=== PATIENT | male | born 1945 | race Caucasian/White ===

== ENCOUNTER 2022-03-24 12:16 | Inpatient (IN) | payer MEDICARE ==
[~2022-03-24] VITALS: Ht 182.9 cm; Wt 105.1 kg
[2022-03-24] MEDS ORDERED: AMLODIPINE BESYL5 MG PO (12:31)
[2022-03-24] MEDS ORDERED: METO100ER PO (12:31)
[2022-03-24] MEDS ORDERED: ALLO300 PO (12:31)
[2022-03-24 12:42] LABS: BASOPHILS ABSOLUTE AUTO 0.03 K/mm3 (0.00-0.23); BASOPHILS PERCENT AUTO 0 % (0-2); EOSINOPHILS ABSOLUTE AUTO 0.24 K/mm3 (0.00-0.68); EOSINOPHILS PERCENT AUTO 3 % (0-6); Hematocrit 34.9 % (37.0-53.0); Hemoglobin 12.4 g/dL (13.5-17.5); IMMATURE GRAN ABSOLUTE AUTO 0.04 K/mm3 (0.00-0.10); IMMATURE GRAN PERCENT AUTO 1 % (0-1); LYMPHOCYTES PERCENT AUTO 23 % (21-46); MONOCYTES ABSOLUTE AUTO 0.66 K/mm3 (0.16-1.47); MONOCYTES PERCENT AUTO 10 % (4-13); Mean Corpuscular HGB Conc 35.5 g/dL (31.5-36.5); Mean Corpuscular Volume 102 fL (80-100); Mean Platelet Volume 8.9 fL (9.1-12.4); NEUTROPHILS ABSOLUTE AUTO 4.41 K/mm3 (1.96-9.15); NEUTROPHILS PERCENT AUTO 63 % (41-73); NRBC ABSOLUTE 0.04 K/mm3 (0.00-0.02); NRBC Auto 0.6 /100 WBC (0.0-0.2); Platelet Count 168 K/mm3 (150-400); RDW Coefficient Variation 13.8 % (11.7-14.2); RDW Standard Deviation 50.9 fL (35.1-46.3); Red Blood Cell Count 3.44 M/mm3 (4.30-5.90); White Blood Cell Count 6.98 K/mm3 (4.00-11.30)
[2022-03-24 12:57] LABS: Albumin, Blood 3.3 g/dL (3.4-5.0); Albumin/Globulin Ratio 0.8 (0.8-1.8); Bilirubin, Total 0.5 mg/dL (0.1-1.0); Bun/Creatinine Ratio 20.2 (12.0-20.0); Calcium, Blood 8.3 mg/dL (8.5-10.1); Creatinine, Blood 1.14 mg/dL (0.60-1.20); Potassium, Blood 4.5 mmol/L (3.5-5.5); Total Protein, Blood 7.3 g/dL (6.4-8.2)
--- NOTE | 2022-03-24 18:38 | NUR ---
SHIFT SUMMARY/ADMIT PATIENT ADMITTED AT 1715. PATIENT SETTLED INTO ROOM. PATIENT ORIENTED TO CALL LIGHT AND TV CONTROL. ADMISSION COMPLETE. PATIENT UNDRESSED AND PLACED IN HOSPITAL GOWN. NS STARTED. PATIENT LEFT KNEE IS RED, SWOLLEN. PATIENT REPORTS 7/10 PAIN, MEDICATED PER EMAR. DR. BENTLEY CONSULTED WITH PATIENT. PLAN FOR POSSIBLE SURGERY TOMORROW. PATIENT IS NPO. PATIENT REPORTS HE SELF CATH AT HOME, DR. BULLOCK NOTIFIED, NEW ORDER FOR TRAMMELL PLACEMENT. PATIENT AGREEABLE. PATIENT IS ON BEDREST. PATIENT IS PLEASANT AND COOPERATIVE WITH CARE.
[2022-03-24 23:49] LABS: Source, Urine Foley catheter
[2022-03-24 23:58] LABS: Bilirubin, Urine Neg (Neg); Blood, Urine 1+ (Neg); Glucose Qualitative, Urine Neg (Neg); Ketones, Urine 1+ (Neg); Leukocyte Esterase, Urine 3+ (Neg); Nitrite, Urine Neg (Neg); Protein, Urine 2+ (Neg); Urobilinogen, Urine 2+ (Normal)
[2022-03-25 00:15] LABS: Amorphous Light (0-Heavy); Appearance, Urine Hazy (Clear); Bacteria Few /hpf; Color, Urine Yellow (P-Yellow); Red Blood Cells, Urine 0-2 /hpf (0-2); Squamous Epithelial Cells Few /hpf (Few); White Blood Cells, Urine 50-100 /hpf (0-5)
[2022-03-25 00:29] LABS: Influenza A, PCR NEGATIVE (NEGATIVE); Influenza B, PCR NEGATIVE (NEGATIVE); Resp Syncytial Virus, PCR NEGATIVE (NEGATIVE); SARS-Cov-2 (COVID-19) PCR, MMC NEGATIVE (NEGATIVE)
--- NOTE | 2022-03-25 05:20 | NUR ---
SHIFT SUMMARY: A&OX4. VERY PLEASANT. CATHETER IN PLACE, PATENT AND DRAINING TO GRAVITY. PAIN WELL MANAGED T/O THE SHIFT. NPO SINCE MIDNIGHT. SURGICAL PREVENTION KIT COMPLETED. PLANS FOR SURGERY. REMAINS ON BEDREST. CALL LIGHT IN REACH AND PT RESTING AT THIS TIME.
[2022-03-25 05:40] LABS: Hematocrit 31.1 % (37.0-53.0); Hemoglobin 10.7 g/dL (13.5-17.5); Mean Corpuscular HGB 35.4 pg (26.0-34.0); Mean Corpuscular HGB Conc 34.4 g/dL (31.5-36.5); Mean Corpuscular Volume 103 fL (80-100); Platelet Count 143 K/mm3 (150-400); RDW Coefficient Variation 13.8 % (11.7-14.2); RDW Standard Deviation 51.9 fL (35.1-46.3); Red Blood Cell Count 3.02 M/mm3 (4.30-5.90); White Blood Cell Count 6.32 K/mm3 (4.00-11.30)
[2022-03-25 06:10] LABS: Bun/Creatinine Ratio 23.1 (12.0-20.0); Calcium, Blood 8.3 mg/dL (8.5-10.1); Creatinine, Blood 1.21 mg/dL (0.60-1.20); Magnesium, Blood 1.6 mg/dL (1.6-2.4); Potassium, Blood 4.3 mmol/L (3.5-5.5)
[2022-03-25 08:35] LABS: CPK Creatine Kinase 137 U/L (39-308)
--- NOTE | 2022-03-25 13:39 | NUR ---
Spiritual Care Nurse Request. Pt. is awake in bed and welcomes my visit. Pt. is unsettled about his discomfort and impending transfer from surgery. Listen empathetically with a calming presence. Pt. declines spiritual care, but welcomed conversation. Facilitated a life story, and unearthed some of causes of his spiritual disappintement. Through theraputic listening rapport is built. Pt. displayed evidence of being encouraged, and verbalized gratitude for the spiritual care visit.
--- NOTE | 2022-03-25 14:10 | NUR ---
TRANSFER SUMMARY PT LEFT WITH TRANSPORT. REPORT CALLED TO ENRIQUE [phone]. CALLED AND SPOKE WITH TOÑO Tobar AND INFORMED HER PT LEFT TO [facility] AND GAVE HER CONTACT TELEPHONE NUMBER TO NURSES' DESK.
--- NOTE | 2022-03-25 14:12 | NUR ---
PT LEFT WITH [facility] TRANSPORT AT 1355. TRANSFER PACKET SENT WITH AMBULANCE CREW. SIGNATURE PAGE OBTAINED. PRIMARY RN, VIMAL HANSEN NOTIFIED.
== END 2022-03-25 14:01 | disposition short-term general hospital (02) | DRG 563 ==
LOC: ER 12:16 → ERHOLD 14:43 → SURS 14:43
PROVIDERS: Nurse Practitioner Acute Care; Student in an Organized Health Care Education/Training Program; ADMIT Internal Medicine
DX: S82.042A Displaced comminuted fracture of left patella, initial encounter for closed fracture (principal); S82.192A Other fracture of upper end of left tibia, initial encounter for closed fracture; N17.9 Acute kidney failure, unspecified; Z20.822 Contact with and (suspected) exposure to COVID-19; S82.832A Other fracture of upper and lower end of left fibula, initial encounter for closed fracture; I10 Essential (primary) hypertension; M10.9 Gout, unspecified; E66.01 Morbid (severe) obesity due to excess calories; F10.20 Alcohol dependence, uncomplicated; E86.0 Dehydration; E83.42 Hypomagnesemia; R20.2 Paresthesia of skin; Z87.891 Personal history of nicotine dependence; Z68.30 Body mass index [BMI] 30.0-30.9, adult; Z98.890 Other specified postprocedural states; Z79.899 Other long term (current) drug therapy; W18.39XA Other fall on same level, initial encounter; Y92.009 Unspecified place in unspecified non-institutional (private) residence as the place of occurrence of the external cause
CPT/HCPCS: 0241U; 36415; 73562-LT; 73590; 73706; 80048; 80053; 81001; 82550; 83735; 83880; 84484; 85025; 85027; 87077; 87086; 87147; 87186; 93005; 93010; 96374-59; 99285-25; A9270; J1885; J2270; J3010; J3475; J7030; Q9967

== ENCOUNTER 2022-10-05 14:54 | Inpatient (IN) | payer MEDICARE ==
[~2022-10-05] VITALS: Ht 182.9 cm; Wt 93.2 kg
[~2022-10-05 14:54] MED LIST: ALLO300 PO; AMLODIPINE BESYL5 MG PO; METO100ER PO
[2022-10-05 16:49] LABS: BASOPHILS ABSOLUTE AUTO 0.04 K/mm3 (0.00-0.23); BASOPHILS PERCENT AUTO 0 % (0-2); EOSINOPHILS ABSOLUTE AUTO 0.03 K/mm3 (0.00-0.68); EOSINOPHILS PERCENT AUTO 0 % (0-6); Hematocrit 27.6 % (37.0-53.0); Hemoglobin 9.5 g/dL (13.5-17.5); IMMATURE GRAN ABSOLUTE AUTO 0.11 K/mm3 (0.00-0.10); IMMATURE GRAN PERCENT AUTO 1 % (0-1); LYMPHOCYTES ABSOLUTE AUTO 1.41 K/mm3 (0.84-5.20); LYMPHOCYTES PERCENT AUTO 10 % (21-46); MONOCYTES PERCENT AUTO 4 % (4-13); Mean Corpuscular HGB 32.2 pg (26.0-34.0); Mean Corpuscular HGB Conc 34.4 g/dL (31.5-36.5); Mean Corpuscular Volume 94 fL (80-100); NEUTROPHILS ABSOLUTE AUTO 12.17 K/mm3 (1.96-9.15); NEUTROPHILS PERCENT AUTO 85 % (41-73); Platelet Count 474 K/mm3 (150-400); RDW Coefficient Variation 15.3 % (11.7-14.2); RDW Standard Deviation 51.8 fL (35.1-46.3); Red Blood Cell Count 2.95 M/mm3 (4.30-5.90); White Blood Cell Count 14.36 K/mm3 (4.00-11.30)
[2022-10-05 17:11] LABS: Albumin, Blood 1.9 g/dL (3.4-5.0); Albumin/Globulin Ratio 0.5 (0.8-1.8); Bilirubin, Total 0.3 mg/dL (0.1-1.0); Bun/Creatinine Ratio 21.9 (12.0-20.0); Calcium, Blood 6.2 mg/dL (8.5-10.1); Creatinine, Blood 1.6 mg/dL (0.60-1.20); Globulin, Blood 3.9 g/dL (2.2-4.0); Potassium, Blood 2.9 mmol/L (3.5-5.5); Total Protein, Blood 5.8 g/dL (6.4-8.2)
[2022-10-05 17:36] LABS: Source, Urine Straight Cath
[2022-10-05 17:41] LABS: Appearance, Urine Hazy (Clear); Bilirubin, Urine Neg (Neg); Blood, Urine 1+ (Neg); Color, Urine Yellow (P-Yellow); Glucose Qualitative, Urine Neg (Neg); Ketones, Urine 1+ (Neg); Leukocyte Esterase, Urine 2+ (Neg); Nitrite, Urine Pos (Neg); Protein, Urine 2+ (Neg); Specific Gravity, Urine 1.015 (1.003-1.022); Urobilinogen, Urine NORM (Normal)
[2022-10-05 17:56] LABS: Bacteria Many /hpf; Hyaline Casts 0-2 /lpf (0-2); Red Blood Cells, Urine 0-2 /hpf (0-2); Squamous Epithelial Cells Few /hpf (Few); White Blood Cells, Urine 25-50 /hpf (0-5)
[2022-10-05 21:16] LABS: Magnesium, Blood 0.9 mg/dL (1.6-2.4)
[2022-10-05 23:15] VITALS: BP 84/41
[2022-10-05 23:30] VITALS: BP 72/59
[2022-10-05 23:45] VITALS: BP 80/53
[2022-10-06] VITALS (91 sets, daily range): BP systolic 66–124; BP diastolic 42–109
[2022-10-06 01:51] LABS: Adenovirus F 40/41 Not Detected (NOT DETECT); Astrovirus Not Detected (NOT DETECT); Campylobacter Sp Not Detected (NOT DETECT); Cryptosporidium Not Detected (NOT DETECT); Cyclospora Cayetanensis Not Detected (NOT DETECT); E. Coli O157 Not Detected (NOT DETECT); Entamoeba Histolytica Not Detected (NOT DETECT); Enteroaggregative E. coli-EAEC Not Detected (NOT DETECT); Enteropathogenic E. coli-EPEC Not Detected (NOT DETECT); Enterotoxigenic E. coli-ETEC Not Detected (NOT DETECT); Giardia Lamblia Not Detected (NOT DETECT); Norovirus GI/GII Not Detected (NOT DETECT); Plesiomonas Shigelloides Not Detected (NOT DETECT); Rotavirus A Not Detected (NOT DETECT); Salmonella Sp Not Detected (NOT DETECT); Sapovirus Not Detected (NOT DETECT); Shiga Toxin-prod E. coli-STEC Not Detected (NOT DETECT); Shigella/Enteroin E. coli-EIEC Not Detected (NOT DETECT); Vibrio Cholerae Not Detected (NOT DETECT); Vibrio Sp Not Detected (NOT DETECT); Yersinia Enterocolitica Not Detected (NOT DETECT)
--- NOTE | 2022-10-06 02:22 | NUR ---
ER ADMIT TO ICU 14: ER ADMIT ARRIVED TOT HE UNIT AT 2251; PT BEING ADMITTED WTIH HYPOTENSION AND SBP UPON ARRIVAL ARE SITTING IN THE 80'S. SR ON MONITOR WITH HR IN THE 60-70 AND NO C/O CHEST PAIN AT THIS TIME. PT STATES THAT HE HAS BONE SPURS IN HIS SHOULDERS AND THAT CAUSES HIM SOME UPPER BACK/NECK PAIN. PT ON RA WITH SPO2 96< AND RR 12-14; PT DOES HAVE C/O SOB DURING REPOSITIONING. PT A&O X 4, PLEASANT AND COOPERATIVE WITH CARE. BOWEL SOUNDS PRESENT IN ALL QUADRANTS; PT HAS DIARRHEA THAT HAS BEEN GOING ON FOR THE LAST WEEK. PT INCONTINENT OF BOTH URINE AND STOOL AT BASELINE AND ARRIVES TO THE UNIT IN A DEPENDS FROM HOME. PT CLEANED UP AND PLACED IN NEW DEPENDS. STOOL SAMPLE COLLECTED AND SENT TO LAB. PT HAS TRACE AMOUNTS OF EDEMA IN BLE. PT HAS HAD A METAL SHARMILA PLACED IN L. LEG ABD STATES THAT HE IS UNABLE TO BEAR WEIGHT ON THIS LEG; PT ABLE TO MOVE EXTREMITY WELL WITH NO ASSOCIATED PAIN. PT SUSTAINING SBP LOW 80'S AND STARTED TO DROP TO HIGH 70'S WITH MAP BELOW 65. DR BALL NOTIFIED AND ORDERS RECIEVED FOR LEVOPHED. PROVIDER ON THE WAY TO PLACE CENTRAL LINE. PT TOLERATED PROCEDURE WELL AND BEDSIDE CXR OBTAINED. CURRENTLY LEVO GTT @ 3 MCG AND NS @ 150 MLS/HR. CALL PLACED TO THE PT'S , TOÑO, AND SHE WAS UPDATED ON THE PT'S STATUS AND EVERYTING THAT HAS HAPPENED SINCE ADMISSION. BED LOWERED, CALL LIGHT IN REACH, WILL CONTINUE TO MONITOR.
[2022-10-06 03:39] LABS: BASOPHILS ABSOLUTE AUTO 0.05 K/mm3 (0.00-0.23); BASOPHILS PERCENT AUTO 0 % (0-2); EOSINOPHILS ABSOLUTE AUTO 0.11 K/mm3 (0.00-0.68); EOSINOPHILS PERCENT AUTO 1 % (0-6); Hematocrit 25.5 % (37.0-53.0); Hemoglobin 8.7 g/dL (13.5-17.5); IMMATURE GRAN ABSOLUTE AUTO 0.05 K/mm3 (0.00-0.10); IMMATURE GRAN PERCENT AUTO 0 % (0-1); LYMPHOCYTES ABSOLUTE AUTO 1.83 K/mm3 (0.84-5.20); LYMPHOCYTES PERCENT AUTO 14 % (21-46); MONOCYTES ABSOLUTE AUTO 0.88 K/mm3 (0.16-1.47); MONOCYTES PERCENT AUTO 7 % (4-13); Mean Corpuscular HGB 31.5 pg (26.0-34.0); Mean Corpuscular HGB Conc 34.1 g/dL (31.5-36.5); Mean Corpuscular Volume 92 fL (80-100); Mean Platelet Volume 8.8 fL (9.1-12.4); NEUTROPHILS ABSOLUTE AUTO 10.65 K/mm3 (1.96-9.15); NEUTROPHILS PERCENT AUTO 78 % (41-73); Platelet Count 470 K/mm3 (150-400); RDW Coefficient Variation 14.9 % (11.7-14.2); RDW Standard Deviation 50.1 fL (35.1-46.3); Red Blood Cell Count 2.76 M/mm3 (4.30-5.90); White Blood Cell Count 13.57 K/mm3 (4.00-11.30)
[2022-10-06 04:16] LABS: Magnesium, Blood 1.5 mg/dL (1.6-2.4)
[2022-10-06 04:35] LABS: Albumin, Blood 1.7 g/dL (3.4-5.0); Albumin/Globulin Ratio 0.5 (0.8-1.8); Bilirubin, Total 0.2 mg/dL (0.1-1.0); Bun/Creatinine Ratio 21.9 (12.0-20.0); Calcium, Blood 5.8 mg/dL (8.5-10.1); Creatinine, Blood 1.51 mg/dL (0.60-1.20); Globulin, Blood 3.2 g/dL (2.2-4.0); Potassium, Blood 3.3 mmol/L (3.5-5.5); Total Protein, Blood 4.9 g/dL (6.4-8.2)
--- NOTE | 2022-10-06 07:09 | NUR ---
SHIFT SUMMARY: NO ACUTE CHANGES THROUGHOUT THE NIGHT. PT DID NOT SLEEP WELL TONIGHT. PT STRAIGHT CATH ONCE WITH 375 ML OUT. PT STATES THAT AT HOME HE NORMALLY STRAIGHT CATHS 3-5 TIMES A DAY. PT DEPENDS CHANGED TWICE THIS SHIFT. PT NOW IN CONTACT PRECAUTION FOR C-DIFF. PT REMAINS SR ON MONITOR WITH HR 80'S AND SBP 110-120. LEVO GTT @ 6 MCG. BED LOWERED, CALL LIGHT IN REACH. BEDSIDE REPORT GIVEN TO IAN BUSH.
[2022-10-06 15:20] LABS: Albumin, Blood 1.8 g/dL (3.4-5.0); Anion Gap 6 mmol/L (6-16); Blood Urea Nitrogen 30 mg/dL (8-24); Bun/Creatinine Ratio 19.9 (12.0-20.0); CO2, Blood 17 mmol/L (21-32); Calcium, Blood 7.3 mg/dL (8.5-10.1); Chloride, Blood 116 mmol/L (98-108); Creatinine, Blood 1.51 mg/dL (0.60-1.20); Glomerular Filtration Rate 48 (60-); Glucose, Blood 139 mg/dL (70-99); Magnesium, Blood 1.8 mg/dL (1.6-2.4); Phosphorus, Blood 3.4 mg/dL (2.5-4.9); Potassium, Blood 3.6 mmol/L (3.5-5.5); Sodium, Blood 139 mmol/L (136-145)
--- NOTE | 2022-10-06 19:35 | NUR ---
END OF SHIFT SUMMARY NEURO: A/O X4, PLEASANT. CARDIAC: SR, BP SUPPORTED WITH LEVOPHED, SEE ICU-C FLOWSHEET FOR TITRATIONS. ONE TIME TROPONIN ORDERED DUE TO SEVERE EPIGASTRIC PAIN TO R/O CARDIAC CAUSE. RESP: ROOM AIR, TRANSIENT C/O SHORTNESS OF BREATH, O2 SAT 99% GI: MEDICATED FOR NAUSEA X2 WITH ZOFRAN WITH MINIMAL RELIEF. NO VOMITING. SEVERE EPIGASTRIC PAIN STARTED AT 1800, CONTACTED DR. BISWAS, ORDER RECIEVED FOR GI COCTAIL AND PEPTO BISMOL. PT EXPLAINS PAIN BURNING AND STATES IT IS WORSE WHEN BELCHING. PAIN SUBSIDED APPROX 15 MIN AFTER GI COCTAIL. ONE TIME DOSE OF FENTANYL NOT GIVEN. 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 STATES HE HAS SENSATION ENOUGH TO KNOW WHEN HIS BLADDER IS FULL AND HE WILL REQUEST CATH. STRAIGHT CATH PERFORMED AT 1300, 400 ML OUT CLEAR YELLOW URINE. SKIN: NO CHANGES. ASSISTED WITH WEIGHT SHIFTS EVERY 2 HOURS AND PRN. IV: CENTRAL LINE RIGHT IJ, DRESSING CHANGED, PT TOLERATED WELL. PIV X2, BOTH FLUSH WELL, NOT WITHDRAWING BLOOD. DAUGHTER PATRCIIA LEIGH CALLED FROM [facility] . UPDATED ON CURRENT CONDITION AND POC. DAUGHTER REQUESTS TO BE CALLED WITH ANY CHANGES ANY TIME OF DAY OR NIGHT. PT'S NOT IN TO VISIT TODAY, CARES FOR DEVELOPMENTALLY DELAYED DAUGHTER AT HOME AROUND THE CLOCK. REPORT GIVEN TO ONCOMING RN.
--- NOTE | 2022-10-06 23:30 | NUR ---
ASSUMED CARE AT 1900 PT LAYING IN BED WATCHING TV AT SHIFT CHANGE. HE IS A/O X4 AND FOLLOWING DIRECTIONS; CAN BE VERY LOUD WHEN IN PAIN. PAIN FROM ABD, RIGHT BELOW THE STERNUM; PRN'S GIVEN, FENTANYL HELPED THE MOST. AFEBRILE. SPO2 >98% ON RA. HR 70-80'S; OCCATIONALLY WILL GO INTO [place] BUT DOES NOT STAY THERE VERY LONG. SBP 100'S; MAP 65-75; LEVOPHED TITRTED DOWN TO 2MCG/MIN. PT SELF CATHS AT HOME; STRAIGHT CATH DONE WITH ASSESSMENT; 400ML URINE OUTPUT. LR INFUSING AT 125ML/HR. SEE SHIFT ASSESSMENT FOR FULL ASSESSMENT.
[2022-10-07] VITALS (86 sets, daily range): BP systolic 75–131; BP diastolic 45–91
[2022-10-07 04:59] LABS: BASOPHILS ABSOLUTE AUTO 0.04 K/mm3 (0.00-0.23); BASOPHILS PERCENT AUTO 1 % (0-2); EOSINOPHILS PERCENT AUTO 1 % (0-6); Hematocrit 22.2 % (37.0-53.0); IMMATURE GRAN ABSOLUTE AUTO 0.05 K/mm3 (0.00-0.10); IMMATURE GRAN PERCENT AUTO 1 % (0-1); LYMPHOCYTES ABSOLUTE AUTO 1.47 K/mm3 (0.84-5.20); LYMPHOCYTES PERCENT AUTO 18 % (21-46); MONOCYTES ABSOLUTE AUTO 0.54 K/mm3 (0.16-1.47); MONOCYTES PERCENT AUTO 7 % (4-13); Mean Corpuscular HGB 31.2 pg (26.0-34.0); Mean Corpuscular HGB Conc 33.3 g/dL (31.5-36.5); Mean Corpuscular Volume 94 fL (80-100); Mean Platelet Volume 8.9 fL (9.1-12.4); NEUTROPHILS ABSOLUTE AUTO 6.03 K/mm3 (1.96-9.15); NEUTROPHILS PERCENT AUTO 73 % (41-73); Platelet Count 388 K/mm3 (150-400); RDW Coefficient Variation 15.6 % (11.7-14.2); RDW Standard Deviation 52.4 fL (35.1-46.3); Red Blood Cell Count 2.37 M/mm3 (4.30-5.90); White Blood Cell Count 8.23 K/mm3 (4.00-11.30)
[2022-10-07 05:05] LABS: Hemoglobin 7.2 g/dL (13.5-17.5)
[2022-10-07 05:50] LABS: Albumin, Blood 1.5 g/dL (3.4-5.0); Anion Gap 5 mmol/L (6-16); Blood Urea Nitrogen 24 mg/dL (8-24); Bun/Creatinine Ratio 17.8 (12.0-20.0); CO2, Blood 17 mmol/L (21-32); Calcium, Blood 6.9 mg/dL (8.5-10.1); Chloride, Blood 118 mmol/L (98-108); Creatinine, Blood 1.35 mg/dL (0.60-1.20); Glomerular Filtration Rate 54 (60-); Glucose, Blood 119 mg/dL (70-99); Magnesium, Blood 1.7 mg/dL (1.6-2.4); Phosphorus, Blood 3.5 mg/dL (2.5-4.9); Potassium, Blood 3.3 mmol/L (3.5-5.5); Sodium, Blood 140 mmol/L (136-145)
--- NOTE | 2022-10-07 07:00 | NUR ---
ASSUME CARE: I have assumed care of this patient.
--- NOTE | 2022-10-07 07:05 | NUR ---
END OF SHIFT SUMMARY NO ACUTE EVENTS OVERNIGHT. PT WAS ABLE TO SLEEP AFTER 2200. HE CONT TO BE A/O X4 AND FOLLOWING DIRECTIONS; CIWA 14-15; 1MG ATIVAN GIVEN AND HELPFUL. SPO2 >98% ON RA. AFEBRILE. HR 70-80'S. SBP 90-120; LEVOPHED INFUSING AT 2MCG/MIN. NO BM THIS SHIFT; NAUSEA SUBSIDED AFTER ATIVAN GIVEN. STRAIGHT CATH TWICE; HE TOLERATED WELL. LR INFUSING AT 125ML/HR. REPROT GIVEN TO AM RN.
--- NOTE | 2022-10-07 10:30 | NUR ---
PHONE CALL: With patient's verbal permission, this RN spoke to his daughter, Jossy, and provided update.
--- NOTE | 2022-10-07 16:14 | NUR ---
PROVIDER UPDATE: Hospitalist called and updated on status of BP and levophed. See new orders.
--- NOTE | 2022-10-07 18:21 | NUR ---
SHIFT SUMMARY: Attempted to discontinue norepi today, however BP would slowly trend down over the course of an hour each time norepi was placed on standby. Provider was notified and cortisol testing ordered for the AM. Pt had three medium sized loose/liquid BMs today. He has received two doses of PRN zofran. Pt straight cathed x 2. Minimal appetite due to pain with swallowing caused by prior surgery. Dietitian consult placed. Right IJ still in place for vasopressors.
--- NOTE | 2022-10-07 22:43 | NUR ---
UPDATE NOTIFIED FROM LAB OF A POSITIVE BLOOD CULTURE, GRAM POSITIVE COCCI IN CLUSTERS. CALL MADE TO HOSPITALIST WHO PROVIDED ORDERS FOR VANCO PER PHARMACY CONSULT FOR BACTEREMIA.
--- NOTE | 2022-10-07 23:39 | NUR ---
ASSUMED CARE AT 1900 PT LAYING IN BED WATCHING TV AT SHIFT CHANGE. HE SEEMS TO BE IN BETTER SPIRITS THAN PREVIOUS SHIFT. HE IS A/O X4 AND FOLLOWING DIRECTIONS; WEAKNESS NOTED TO BLE. AFEBRILE. SPO2 >98% ON RA. HR 60'S. SBP 110-115; LEVOPHED INFUSING AT 0.5MCG/MIN. NAUSEA AND ABD PAIN COMES AND GOES; TOLERATING SOME PO INTAKE; GI COCKTAIL GIVEN AND HELPFUL. SINGLE STRAIGHT CATH DONE; 550ML OUTPUT. LR INFUSING AT 125ML/HR. CIWA 7. SEE SHIFT ASSESSMENT FOR FULL ASSESSMENT.
[2022-10-08] VITALS (35 sets, daily range): BP systolic 82–120; BP diastolic 54–91
--- NOTE | 2022-10-08 03:45 | NUR ---
UPDATE CALLED DR BALL REGARDING PT ACID REFLEX; PT STATES THAT HE TAKES LIQUID PEPTO BISMOL AT HOME AND THIS SEEMS TO REALLY HELP. THIS WAS TOLD TO DR BALL WHO THEN PROVIDED ORDERS FOR LIQUID PEPTO BISMOL 15ML PO Q6HR PRN.
--- NOTE | 2022-10-08 06:29 | NUR ---
END OF SHIFT SUMMARY NO ACUTE EVENTS OVER NIGHT; HAS BEEN AWAKE ALL NIGHT. CONT TO BE A/O X4 AND ABLE TO MAKE HIS NEEDS KNOWN; CIWA 6-8. SPO2 >98% ON RA. HR 60'S. SBP 100-120; MAP 65-80; LEVOPHED ON SB SINCE 2329. ONE BM THIS SHIFT; LOOSE AND SOFT BUT NOT PURE LIQUID; ACID REFLEX RESOLVED AFTER PEPTO. STRAIGHT CATH DONE TWICE; 1250 ML OUTPUT. LR INFUSING AT 125ML/HR. WILL GIVE REPORT TO AM RN WHEN AVAILABLE.
--- NOTE | 2022-10-08 07:15 | NUR ---
ASSSUMED CARE OF PT AT 0715 BEDSIDE REPORT RECIEVED FROM ELEAZAR JASSO. PT IS A/O, RESTING COMFORTABLY ON CONTINUOUS CARDIAC MONITORING. CURRENLY ICU STATUS. CENTRAL LINE RIGHT IJ, PLAN TO D/C IF NO LONGER NEEDED. PT HAS BEEN OFF LEVOPHED SINCE LAST SHIFT. O2 SAT > 96% ON ROOM AIR. ASSISTING WITH STRAIGHT CATHS 4-5 TIMES DAILY NEEDED, PT HAS NEUROGENIC BLADDER SINCE SPINAL CORD INJURY 10 YEARS AGO. DAUGHTER ARRIVING TODAY FROM [facility]. HAS NOT BEEN ABLE TO VISIT BUT IS BEING UPDATED VIA PHONE.
[2022-10-08 09:15] LABS: Albumin, Blood 1.5 g/dL (3.4-5.0); Anion Gap 4 mmol/L (6-16); Blood Urea Nitrogen 16 mg/dL (8-24); CO2, Blood 19 mmol/L (21-32); Calcium, Blood 6.7 mg/dL (8.5-10.1); Chloride, Blood 116 mmol/L (98-108); Creatinine, Blood 1.14 mg/dL (0.60-1.20); Glomerular Filtration Rate 67 (60-); Glucose, Blood 89 mg/dL (70-99); Magnesium, Blood 1.3 mg/dL (1.6-2.4); Phosphorus, Blood 2.4 mg/dL (2.5-4.9); Potassium, Blood 3.6 mmol/L (3.5-5.5); Sodium, Blood 139 mmol/L (136-145)
--- NOTE | 2022-10-08 11:30 | NUR ---
DR. BISWAS TO BEDSIDE. SWALLOW EVAL ORDERED DUE TO PT'S C/O PAINFUL SWALLOWING. ELECTROLYTE REPLACEMENT ORDERED DUE TO RESULTS OF AM LABS. STATUS CHANGED TO MEDICAL WITH TELE. V/S STABLE AT THIS TIME. DAUGHTER ARRIVED TO VISIT. UPDATED ON POC AND ALL QUESTIONS ANSWERED. PT PLEASANT AND COOPERATIVE. MEDICATED FOR GI UPSET WITH PEPTO WITH GOOD RELIEF. STRAIGHT CATH COMPLETED WITH 800ML URINE OUTPUT. RN TO CONTINUE TO MONITOR.
--- NOTE | 2022-10-08 19:08 | NUR ---
END OF SHIFT SUMMARY PT REMAINS A/O, DAUGHTER AT BEDSIDE THROUGHOUT SHIFT. SWALLOW EVAL DONE BY SPEECH THERAPY DUE TO PAINFUL SWALLOWING. GI CONSULT RECOMMENDED, OK PER DR. BISWAS. CONSULT PLACED VIA PHONE TO DR. GONZALEZ, HE CONFIRMS HE WILL SEE THE PT SOON HE IS ABLE. ELECTROLYTES REPLACED. IN AND OUT CATH X2 WITH A TOTAL OF 1400ML OUT. SKIN REMAINS INTACT. PT OOB TO CHAIR WITH PT TODAY. TOLERATED WELL. STAYED IN CHAIR FOR 1 HOUR, 1 PERSON ASSIST WITH WALKER BACK TO BED. STATUS CHANGED TO MEDICAL WITH TELE. REPORT GIVEN TO ONCOMING SHIFT.
[2022-10-08 23:52] LABS: Albumin, Blood 1.6 g/dL (3.4-5.0); Anion Gap 6 mmol/L (6-16); Blood Urea Nitrogen 15 mg/dL (8-24); Bun/Creatinine Ratio 14.6 (12.0-20.0); CO2, Blood 21 mmol/L (21-32); Calcium, Blood 6.7 mg/dL (8.5-10.1); Chloride, Blood 113 mmol/L (98-108); Creatinine, Blood 1.03 mg/dL (0.60-1.20); Glomerular Filtration Rate 75 (60-); Glucose, Blood 109 mg/dL (70-99); Potassium, Blood 3.8 mmol/L (3.5-5.5); Sodium, Blood 140 mmol/L (136-145)
[2022-10-09] VITALS (25 sets, daily range): BP systolic 59–140; BP diastolic 42–125
--- NOTE | 2022-10-09 05:44 | NUR ---
SHIFT SUMMARY PATIENT IS ALERT AND ORIENTED X4, SOLOMON AND LOUD. 02 SATS >95% ON RA, DENIES SOB. HR SR WITH PVCs 70s-80s. BP STABLE. DENIES CP/PRESSURE. DR. GONZALEZ IN LAST NIGHT TO TALK WITH PATIENT, PATIENT NPO AT 0700 TODAY FOR PROCEDURE. STRAIGHT CATH DONE TWICE THIS SHIFT, PATIENT ABLE TO STATE WHEN IT IS NEEDED. MEDS CRUSHED IN APPLESAUCE, PATIENT HAS DIFFICULTY SWALLOWING. INDEPENDENT WITH REPOSITIONING. NO BOWEL MOVEMENT THIS SHIFT, ATTENDS IN PLACE. PATIENT HAS CHRONIC PAIN BUT HAS DENIED NEEDS FOR PAIN MEDICATIONS. CALL LIGHT IN REACH.
--- NOTE | 2022-10-09 14:41 | NUR ---
PT BROUGHT FROM FLOOR TO DAY SURGERY FOR PROCEDURE.
--- NOTE | 2022-10-09 14:44 | NUR ---
10/09/22 1444 Barbara Schroeder HISTORY, CHART, MEDICATIONS AND ALLERGIES REVIEWED BEFORE START OF PROCEDURE. PATIENT CONFIRMS NPO STATUS AND AGREES WITH SCHEDULED PROCEDURE. 3-LEAD EKG REVIEWED WITH PHYSICIAN PRIOR TO START OF PROCEDURE. MONITOR INTACT WITH CONTINUOUS PULSE OXIMETRY,CAPNOGRAPHY, 3-LEAD EKG, INTERMITTENT BP. SUPPLEMENTAL O2 TO BE TITRATED THROUGHOUT PROCEDURE TO MAINTAIN O2 SATURATION ABOVE 90%. PATIENT DETERMINED TO BE ASA APPROPRIATE FOR PROPOFOL SEDATION PRIOR TO START OF PROCEDURE BY DR. GONZALEZ.
--- NOTE | 2022-10-09 14:52 | NUR ---
PT HAS 20G IV IN RIGHT HAND THAT FLUSHES WELL AND FLOWS TO GRAVITY.
--- NOTE | 2022-10-09 18:19 | NUR ---
ICU TRANSFER Patient NPO today, EGD planned for today, patient went down for procedure this afternoon. After EGD patient c/o ABD pain & nausea. ABD soft, bowel tones present. PO Zofran given. PO Vancomycin given for cdiff. 1x loose BM noted this shift. Diet resumed after EGD, no difficulty swallowing noted, full liquid diet ordered. Straight cath x1, 500mL UO. Patient c/o difficulty hearing, left ear has dark ear wax. MD ordered debrox ear gtts. Therapy attempted to work with patient today, but patient going to EGD. PT said patient is SBA/pivot, patient reports he cannot walk. Vitals stable. will contine plan of care.
[2022-10-09 23:02] LABS: Vancomycin, Trough 19.5 ug/mL (5.0-10.0)
[2022-10-10 03:12] VITALS: BP 108/67
--- NOTE | 2022-10-10 04:03 | NUR ---
[facility] SUMMARY VSS. ALERT AND ORIENTED X 3-4. HARD OF HEARING, VOICED WAX BUILD UP. EAR DROPS ADMIN AT HS. MED TELE SINUS RHYTHM AT 71. CIWAS LOW:2-3. NEUROGENIC BLADDER - STR8 CATHS, OUTPUT 500ML. PO VANCO ADMIN. REMAINS ON PRECAUTIONS FOR C-DIFF. CALL LIGHT IN REACH. HAS BEEN RESTING QUIETLY WITH OCCASIONAL INTERRUPTIONS. WILL CONTINUE TO MONITOR
[2022-10-10 05:37] LABS: Albumin, Blood 1.5 g/dL (3.4-5.0); Anion Gap 6 mmol/L (6-16); Blood Urea Nitrogen 12 mg/dL (8-24); Bun/Creatinine Ratio 12.3 (12.0-20.0); CO2, Blood 21 mmol/L (21-32); Calcium, Blood 6.8 mg/dL (8.5-10.1); Chloride, Blood 114 mmol/L (98-108); Creatinine, Blood 0.98 mg/dL (0.60-1.20); Glomerular Filtration Rate 80 (60-); Glucose, Blood 105 mg/dL (70-99); Magnesium, Blood 1.6 mg/dL (1.6-2.4); Phosphorus, Blood 2.8 mg/dL (2.5-4.9); Potassium, Blood 3.6 mmol/L (3.5-5.5); Sodium, Blood 141 mmol/L (136-145)
[2022-10-10 07:51] VITALS: BP 107/77
[2022-10-10 14:55] VITALS: BP 107/59
--- NOTE | 2022-10-10 16:58 | NUR ---
SHIFT SUMMARY PT A&OX3 AND COOPERATIVE OF CARE. PT HAS HAD LOW TEMP T/O DAY (DOCUMENTED IN CHART). DR BISWAS NOTIFIED OF LOW TEMP IN MORNING. NO ORDERS GIVEN. NO C/O PAIN. ASSISTED PT WITH STRAIGHT CATHING T/O DAY. PT DID NOT USE CALL LIGHT WHEN BLADDER WAS FEELING FULL EVEN WITH CONTINUED REMINDER TO CALL. DAUGHER AT BEDSIDE IN AM. PT REPORTS INCREASED HEARING IN LEFT EAR. BED IN LOWEST POSITION AND CALL LIGHT IN REACH.
[2022-10-10 20:09] VITALS: BP 115/59
--- NOTE | 2022-10-10 21:02 | NUR ---
TEMP WS 95.3 TEMPORAL, DID NOT REGISTER ORAL. ROOM TEMP INCREASEDTO ALL THE WAY UP. HEATED BLANKET APPLIED. ALERT AND ORIENTED. ASYMPTOMATIC. ROGELIO NURSE NOTIFIED. ABOUT HALF HR LATER, TEMP 95.7 TEMPORAL. WILL CONTINUE TO MONITOR
[2022-10-10 22:21] LABS: Vancomycin, Trough 15.5 ug/mL (5.0-10.0)
[2022-10-11] VITALS (7 sets, daily range): BP systolic 90–110; BP diastolic 50–61
--- NOTE | 2022-10-11 03:47 | NUR ---
CHILD'S NURSE SUMMARY TEMP LOW THIS SHIFT, OTHERWISE VSS. TEMP WAS 95.3 TEMPORAL AT SHIFT COMMENCE. HEATED BLANKET APPLIED AND ROOM TEMP INCREASED. PROCEDURES EFFECTIVE, LATEST TEMP WAS 96.6 F TEMPORAL. ASYMPTOMATIC. IV MEDS AND ANTIBIOTICS INFUSED, ASSISTED WITH STRAIGHT CATH X 1 WITH STERILE TECHNIQUE DONE, CLEAR YELLOW RETURNS. VOICED WAS HAVING SEVERE PAIN OF LEFT LEG EARLIER IN THE SHIFT, MD WAS NOTIFIED OF PAIN AND OF LOW TEMP, PERCOCET PO ORDERED AND GIVEN. MED EFFECTIVE NOTED ABOVE WITH RESTING QUIETLY. ISOLATION PRECAUTIONS MAINTAINED. CALL LIGHT IN REACH. WILL CONTINUE TO MONITOR
[2022-10-11 05:17] LABS: BASOPHILS ABSOLUTE AUTO 0.03 K/mm3 (0.00-0.23); BASOPHILS PERCENT AUTO 1 % (0-2); EOSINOPHILS ABSOLUTE AUTO 0.15 K/mm3 (0.00-0.68); EOSINOPHILS PERCENT AUTO 3 % (0-6); Hematocrit 20.4 % (37.0-53.0); Hemoglobin 6.8 g/dL (13.5-17.5); IMMATURE GRAN ABSOLUTE AUTO 0.02 K/mm3 (0.00-0.10); IMMATURE GRAN PERCENT AUTO 0 % (0-1); LYMPHOCYTES ABSOLUTE AUTO 1.26 K/mm3 (0.84-5.20); LYMPHOCYTES PERCENT AUTO 27 % (21-46); MONOCYTES ABSOLUTE AUTO 0.42 K/mm3 (0.16-1.47); MONOCYTES PERCENT AUTO 9 % (4-13); Mean Corpuscular HGB 31.8 pg (26.0-34.0); Mean Corpuscular HGB Conc 33.3 g/dL (31.5-36.5); Mean Corpuscular Volume 95 fL (80-100); Mean Platelet Volume 9.1 fL (9.1-12.4); NEUTROPHILS ABSOLUTE AUTO 2.74 K/mm3 (1.96-9.15); NEUTROPHILS PERCENT AUTO 59 % (41-73); Platelet Count 297 K/mm3 (150-400); RDW Standard Deviation 55.5 fL (35.1-46.3); Red Blood Cell Count 2.14 M/mm3 (4.30-5.90); White Blood Cell Count 4.62 K/mm3 (4.00-11.30)
[2022-10-11 05:29] LABS: Albumin, Blood 1.5 g/dL (3.4-5.0); Anion Gap 4 mmol/L (6-16); Blood Urea Nitrogen 11 mg/dL (8-24); Bun/Creatinine Ratio 11.9 (12.0-20.0); CO2, Blood 22 mmol/L (21-32); Calcium, Blood 6.7 mg/dL (8.5-10.1); Chloride, Blood 112 mmol/L (98-108); Creatinine, Blood 0.92 mg/dL (0.60-1.20); Glomerular Filtration Rate 86 (60-); Glucose, Blood 107 mg/dL (70-99); Magnesium, Blood 1.4 mg/dL (1.6-2.4); Potassium, Blood 3.7 mmol/L (3.5-5.5); Sodium, Blood 138 mmol/L (136-145)
[2022-10-11 08:41] LABS: Percent Saturation 47.1 % (20.0-50.0)
[2022-10-11] MEDS ORDERED: APHEN325 M1 PO (11:54)
[2022-10-11] MEDS ORDERED: FLUT.05NI (11:56)
[2022-10-11] MEDS ORDERED: FLUDROCORTISON0.1 M1 PO (11:56)
[2022-10-11] MEDS ORDERED: CARB10OTL BOTHEARS (11:56)
[2022-10-11] MEDS ORDERED: MAGNESIUM OXID500 MG PO (11:57)
[2022-10-11] MEDS ORDERED: ONDA4ODT MM (11:57)
[2022-10-11] MEDS ORDERED: VANCOCIN HCL125 MG PO (11:58)
[2022-10-11] MEDS ORDERED: PANT40 PO (11:58)
[2022-10-11] MEDS ORDERED: FOLI1 PO (11:59)
[2022-10-11] MEDS ORDERED: LACT PO (11:59)
[2022-10-11] MEDS ORDERED: B-1100 M1 PO (11:59)
[2022-10-11 12:45] LABS: Influenza A, PCR NEGATIVE (NEGATIVE); Influenza B, PCR NEGATIVE (NEGATIVE); Resp Syncytial Virus, PCR NEGATIVE (NEGATIVE); SARS-Cov-2 (COVID-19) PCR, MMC NEGATIVE (NEGATIVE)
== END 2022-10-11 17:00 | DRG 698 ==
LOC: ER 14:54 → ICUW 21:01 → MEDS 21:01 → ICUW 22:45 → MEDS 10-09 12:50 → ENPENDDIS 10-11 12:04 → MEDS 10-11 17:00
PROVIDERS: Family Medicine; Internal Medicine; Internal Medicine Gastroenterology; Nurse Practitioner Acute Care; Student in an Organized Health Care Education/Training Program; ADMIT Student in an Organized Health Care Education/Training Program
PROC: 3E03329 Introduction of Other Anti-infective into Peripheral Vein, Percutaneous Approach (ICD-10-PCS; 2022-10-05)
PROC: 02HV33Z Insertion of Infusion Device into Superior Vena Cava, Percutaneous Approach (ICD-10-PCS; 2022-10-06)
PROC: 3E033XZ Introduction of Vasopressor into Peripheral Vein, Percutaneous Approach (ICD-10-PCS; 2022-10-06)
PROC: 0DB68ZX Excision of Stomach, Via Natural or Artificial Opening Endoscopic, Diagnostic (ICD-10-PCS; 2022-10-09)
PROC: 0D748ZZ Dilation of Esophagogastric Junction, Via Natural or Artificial Opening Endoscopic (ICD-10-PCS; principal; 2022-10-09 12:00)
PROC: 0D738ZZ Dilation of Lower Esophagus, Via Natural or Artificial Opening Endoscopic (ICD-10-PCS; 2022-10-09 12:00)
PROC: 0DB48ZX Excision of Esophagogastric Junction, Via Natural or Artificial Opening Endoscopic, Diagnostic (ICD-10-PCS; 2022-10-09 12:00)
PROC: 30233N1 Transfusion of Nonautologous Red Blood Cells into Peripheral Vein, Percutaneous Approach (ICD-10-PCS; 2022-10-11)
DX: T83.518A Infection and inflammatory reaction due to other urinary catheter, initial encounter (principal); A41.1 Sepsis due to other specified staphylococcus; A04.72 Enterocolitis due to Clostridium difficile, not specified as recurrent; E87.20 Acidosis, unspecified; N17.9 Acute kidney failure, unspecified; F10.239 Alcohol dependence with withdrawal, unspecified; N39.0 Urinary tract infection, site not specified; K22.10 Ulcer of esophagus without bleeding; I10 Essential (primary) hypertension; E66.01 Morbid (severe) obesity due to excess calories; M10.9 Gout, unspecified; H53.8 Other visual disturbances; I95.9 Hypotension, unspecified; R94.31 Abnormal electrocardiogram [ECG] [EKG]; D64.9 Anemia, unspecified; E83.51 Hypocalcemia; E83.42 Hypomagnesemia; K44.9 Diaphragmatic hernia without obstruction or gangrene; K31.89 Other diseases of stomach and duodenum; L40.9 Psoriasis, unspecified; E87.6 Hypokalemia; R13.10 Dysphagia, unspecified; N31.9 Neuromuscular dysfunction of bladder, unspecified; R12 Heartburn; K22.2 Esophageal obstruction; D72.0 Genetic anomalies of leukocytes; W19.XXXA Unspecified fall, initial encounter; Y84.6 Urinary catheterization as the cause of abnormal reaction of the patient, or of later complication, without mention of misadventure at the time of the procedure; Z20.822 Contact with and (suspected) exposure to COVID-19; B96.20 Unspecified Escherichia coli [E. coli] as the cause of diseases classified elsewhere; B95.4 Other streptococcus as the cause of diseases classified elsewhere; Z68.28 Body mass index [BMI] 28.0-28.9, adult; Z98.1 Arthrodesis status; Z87.891 Personal history of nicotine dependence; Z98.890 Other specified postprocedural states; Z87.81 Personal history of (healed) traumatic fracture; Z79.899 Other long term (current) drug therapy; Z80.0 Family history of malignant neoplasm of digestive organs; Z71.41 Alcohol abuse counseling and surveillance of alcoholic
CPT/HCPCS: 0241U; 36415; 36430; 36556; 51701; 71045; 74177; 80053; 80069; 80202; 80400; 81001; 82272; 82330; 82530; 82533; 82607; 82728; 82746; 83010; 83540; 83550; 83605; 83615; 83690; 83735; 84484; 85025; 86850; 86900; 86901; 86923; 87040; 87077; 87086; 87186; 87324; 87507; 88305; 88342; 92526; 92610; 93005; 93010; 93306; 96361; 96365-59; 96368; 96375; 97162; 97530; 99285-25; A9270; C1726; C1751; J0612; J0696; J0834; J1650; J2060; J2250; J2405; J2704; J3010; J3370; J3411; J3475; J3480; J7030; J7040; J7050; J7060; J7120; P9016; Q9967

== ENCOUNTER 2022-12-30 07:31 | Day surgery (SDC) | payer MEDICARE ==
[~2022-12-30] VITALS: Ht 182.9 cm; Wt 84.0 kg
[~2022-12-30 07:31] MED LIST changes: +APHEN325 M1 PO; +B-1100 M1 PO; +CARB10OTL BOTHEARS; +CEPH500 PO; +FLUDROCORTISON0.1 M1 PO; +FLUT.05NI; +FOLI1 PO; +LACT PO; +MAGNESIUM OXID500 MG PO; +ONDA4ODT MM; +PANT40 PO; +VANCOCIN HCL125 MG PO
[2022-12-30] MEDS ORDERED: METO25ER (08:04)
[2022-12-30 09:23] VITALS: BP 126/64
== END 2022-12-30 09:22 | disposition home or self-care (01) ==
LOC: ORSCSDS 07:31
PROVIDERS: Internal Medicine Gastroenterology
PROC: 0DB68ZX Excision of Stomach, Via Natural or Artificial Opening Endoscopic, Diagnostic (ICD-10-PCS; 2022-12-30)
PROC: 0D757ZZ Dilation of Esophagus, Via Natural or Artificial Opening (ICD-10-PCS; principal; 2022-12-30 08:45)
DX: R13.10 Dysphagia, unspecified (principal); Z87.11 Personal history of peptic ulcer disease; K29.50 Unspecified chronic gastritis without bleeding; K21.9 Gastro-esophageal reflux disease without esophagitis; K22.2 Esophageal obstruction; Z80.0 Family history of malignant neoplasm of digestive organs; I10 Essential (primary) hypertension; Z87.891 Personal history of nicotine dependence; Z79.899 Other long term (current) drug therapy
CPT/HCPCS: 88305; 88342; J2250; J2704; J7120

== ENCOUNTER 2023-05-13 05:33 | Inpatient (IN) | payer MEDICARE ==
[~2023-05-13] VITALS: Ht 182.9 cm; Wt 84.5 kg
[2023-05-13] VITALS (60 sets, daily range): BP systolic 82–131; BP diastolic 46–74
[~2023-05-13 05:33] MED LIST changes: +METO25ER
[2023-05-13 06:09] LABS: BASOPHILS ABSOLUTE AUTO 0.01 K/mm3 (0.00-0.23); BASOPHILS PERCENT AUTO 0 % (0-2); EOSINOPHILS ABSOLUTE AUTO 0.12 K/mm3 (0.00-0.68); EOSINOPHILS PERCENT AUTO 3 % (0-6); Hematocrit 30.7 % (37.0-53.0); Hemoglobin 10.4 g/dL (13.5-17.5); IMMATURE GRAN ABSOLUTE AUTO 0.01 K/mm3 (0.00-0.10); IMMATURE GRAN PERCENT AUTO 0 % (0-1); LYMPHOCYTES ABSOLUTE AUTO 1.59 K/mm3 (0.84-5.20); LYMPHOCYTES PERCENT AUTO 42 % (21-46); MONOCYTES ABSOLUTE AUTO 0.37 K/mm3 (0.16-1.47); MONOCYTES PERCENT AUTO 10 % (4-13); Mean Corpuscular HGB 33.7 pg (26.0-34.0); Mean Corpuscular HGB Conc 33.9 g/dL (31.5-36.5); Mean Corpuscular Volume 99 fL (80-100); Mean Platelet Volume 9.9 fL (9.1-12.4); NEUTROPHILS PERCENT AUTO 45 % (41-73); Platelet Count 122 K/mm3 (150-400); RDW Coefficient Variation 15.3 % (11.7-14.2); RDW Standard Deviation 55.1 fL (35.1-46.3); Red Blood Cell Count 3.09 M/mm3 (4.30-5.90)
[2023-05-13 06:24] LABS: Ethanol (Alcohol), Blood, Med 179 mg/dL; Magnesium, Blood 2.1 mg/dL (1.6-2.4); Salicylate <1.7 mg/dL (2.8-20.0)
[2023-05-13 06:25] LABS: Base Excess Venous -8.3 mmol/L; Bicarbonate Venous 18.2 mmol/L (24.0-30.0); PCO2 Venous 38.3 mmHg (38-42); pH Blood Venous 7.29 (7.34-7.37)
[2023-05-13 06:32] LABS: International Normalized Ratio 0.92; Prothrombin Time Results 9.7 Sec (9.7-11.5)
[2023-05-13 06:54] LABS: Alanine Aminotransfer (ALT/SGP 28 U/L (12-78); Albumin, Blood 2.9 g/dL (3.4-5.0); Albumin/Globulin Ratio 0.7 (0.8-1.8); Alk Phos 94 U/L (50-136); Anion Gap 10 mmol/L (6-16); Aspartate Aminotrans (AST/SGOT 22 U/L (12-37); Bilirubin, Total 0.4 mg/dL (0.1-1.0); Blood Urea Nitrogen 23 mg/dL (8-24); Bun/Creatinine Ratio 19.5 (12.0-20.0); CO2, Blood 19 mmol/L (21-32); Calcium, Blood 8.8 mg/dL (8.5-10.1); Chloride, Blood 110 mmol/L (98-108); Creatinine, Blood 1.18 mg/dL (0.60-1.20); Globulin, Blood 4.2 g/dL (2.2-4.0); Glomerular Filtration Rate 64 (60-); Glucose, Blood 72 mg/dL (70-99); Phosphorus, Blood 3.8 mg/dL (2.5-4.9); Potassium, Blood 3.8 mmol/L (3.5-5.5); Sodium, Blood 139 mmol/L (136-145); Total Protein, Blood 7.1 g/dL (6.4-8.2)
[2023-05-13 06:56] LABS: Acetaminophen, Random <2.0 ug/mL (10.0-30.0)
[2023-05-13 07:26] LABS: U Amphetamine Screen Not Detected; U Barbituate Screen Not Detected; U Benzodiazapine Screen Not Detected; U Buprenorphine Screen Not Detected; U Cannabinoids Screen Not Detected; U Cocaine Screen Not Detected; U Methadone Screen Not Detected; U Methamphetamine Screen Not Detected; U Opiates Screen Not Detected; U Oxycodone Screen Not Detected; U Phencyclidine Screen Not Detected
[2023-05-13 08:58] LABS: International Normalized Ratio 0.92; Prothrombin Time Results 9.7 Sec (9.7-11.5)
--- NOTE | 2023-05-13 09:17 | NUR ---
ASSUMPTION OF CARE AND ARRIVAL TO UNIT: PATIENT ARRIVED TO UNIT VIA STRETCHER. PATIENT APPEARS CALM AND COMFORTABLE. PATIENT AWAKENS TO LOUD VOICE. PATIENT UNABLE TO TELL RN WHY HE IS HERE AND FALLS ASLEEP BEFORE FINISHING HIS ANSWER. PATIENT FOLLOWING DIRECTIONS SUCH OPENING EYES AND PUSHING DOWN WITH FEET. PUPILS ARE 2MM. LUNG SOUNDS DIMINSHED AND CLEAR. PATIENT REPORTS NUMBNESS/TINGLING IN LEFT LOWER LEG RELATED TO A PAST FALL AND INJURY TO THAT LEG. NO BOWEL MOVEMENT NOTED. BEDDING IS CLEAN DRY AND INTACT. PATIENT STARTED ON LEVOPHED GTT AT 2 MG/MIN TO MAINTAIN MAPS >65. PATIENT AT 100% ON 4L VIA NC. PATIENT FINISHING NS BOLUS.
[2023-05-13 10:39] LABS: Source, Urine Clean Catch
[2023-05-13 10:49] LABS: Appearance, Urine Hazy (Clear); Bilirubin, Urine Neg (Neg); Blood, Urine 2+ (Neg); Color, Urine Yellow (P-Yellow); Glucose Qualitative, Urine Neg (Neg); Ketones, Urine Neg (Neg); Leukocyte Esterase, Urine 2+ (Neg); Nitrite, Urine Pos (Neg); Protein, Urine 2+ (Neg); Urobilinogen, Urine NORM (Normal)
[2023-05-13 10:56] LABS: Bacteria Many /hpf; Squamous Epithelial Cells Few /hpf (Few); White Blood Cells, Urine 25-50 /hpf (0-5)
[2023-05-13 10:57] LABS: Amorphous Light (0-Heavy)
[2023-05-13] MEDS ORDERED: AMLO5 PO (12:34)
[2023-05-13 12:35] LABS: Source, Urine Foley catheter
[2023-05-13] MEDS ORDERED: METO100ER PO (12:35)
[2023-05-13 12:41] LABS: Appearance, Urine Hazy (Clear); Bilirubin, Urine Neg (Neg); Blood, Urine 5+ (Neg); Color, Urine Yellow (P-Yellow); Glucose Qualitative, Urine Neg (Neg); Ketones, Urine Neg (Neg); Leukocyte Esterase, Urine 3+ (Neg); Nitrite, Urine Pos (Neg); Protein, Urine 2+ (Neg); Urobilinogen, Urine NORM (Normal)
[2023-05-13 12:48] LABS: Bacteria Many /hpf; Red Blood Cells, Urine 25-50 /hpf (0-2); Squamous Epithelial Cells Few /hpf (Few); White Blood Cells, Urine 50-100 /hpf (0-5)
[2023-05-13 12:50] LABS: Transitional Epithelial Cells Rare /hpf (0-Rare)
--- NOTE | 2023-05-13 19:25 | NUR ---
SHIFT SUMMARY: NEURO: PATIENT SHOWED IMPROVEMENT IN HIS MENTATION THROUGHOUT THE DAY. BY THE END OF THE SHIFT, PATIENT WAS CARRYING ON CONVERSATIONS WITH THE RN. PATIENT AT TIMES WOULD SAY "I'M CONFUSED". PATIENT'S DAUGHTER REPORTS THAT HE DOSE THIS AT HOME SOMETIMES. PATIENT REPORTS GENERALIZED TINGLING AND NUMBNESS/TINGLING IN THE LEFT LE AT BASELINE. PATIENT IS VERY WEAK AND HAS MINIMAL MOVEMENT IN HIS EXTREMITIES. PATIENT ABLE TO FOLLOW DIRECTIONS. CIWA OF 6 THIS AFTERNOON. CARDIAC: PATIENT REQUIRED LEVOPHED GTT DURING THE SHIFT TO MAINTAIN MAPS >65. ABLE TO TITRATE IT DOWN BY THE END OF SHIFT. HR IN THE 80S-90S. SBP IN LOW 100S TO 130S. RESPIRATORY: PATIENT EXPERIENCE APNEIC PERIOD IN THE ED THIS MORNING. PATIENT DISPLAYED A FEW SITUATIONS OF VERY MILD APNEA. SP02S STABLE THROUGHOUT THE DAY WITHOUT DESATURATION. MAINTAINED PATIENT ON 1.5L. SPO2S 98-100% GI/: PATIENT REPORTS THAT HE IS NOT HUNGRY. PATIENT'S REPORTS THAT HE HAS NOT BEEN EATING AND THAT HIS CLOTHES ARE LOOSE ON HIM. PATIENT DID NOT PASS BEDSIDE SWALLOW EVAL. NEW ORDER IN FOR SPEECH AND PO MEDICATIONS TRANSITIONED TO IV PER DR. RAMIREZ. PATIENT REPORTS SELF CATHING AT HOME. TRAMMELL PLACED FOR CRITICAL CARE THIS MORNING. PATIENT TOLERATED WELL. URINE IS CLOUDY YELLOW WITH A FOUL ODOR. PSYCHSOCIAL: UPDATED PATIENT'S AND DAUGHTER. THEY ARE APPRECIATIVE OF THE CARE THE PATIENT IS RECEIVING. HIS REPORTS THAT HE HAS DECREASED HIS DRINKING TO A FEW BEERS. THE PATIENT REPORTS THAT HE DRINKS "WHATEVER HE CAN AND HOWEVER MUCH HE CAN". PATIENT EXPRESSED GRIEF OVER LOSS OF FAMILY AND FEAR OVER HIS POOR HEALTH AND .
--- NOTE | 2023-05-13 20:12 | NUR ---
ASSUMED CARE ASSUMED CARE AT 1900. PT A/O X4. ANSWERED ORIENTATION QUESTIONS CORRECTLY BUT WILL STATE "I DON'T KNOW" AT TIMES. REPORTING PAIN IN BACK, NECK, AND R HEEL. PT STATES PAIN MEDICATIONS DON'T WORK AND HE DOESN'T TAKE ANY AT HOME. REPORTS REPOSITIONING AND FLOATING R HEEL HELPED. CIWA 5. PT VERY WEAK IN EXTREMITIES. LEVOPHED GTT AT 1MCG/MIN AND D5 1/2 NS AT 125ML/HR INFUSING. SEE FLOWSHEET FOR TITRATIONS. ON 1.5L VIA NC. SPO2 GREATER THEN 95%. VSS. TRAMMELL PATENT AND DRAINING TO GRAVITY. "TOÑO" CALLED FOR UPDATE THIS PM. EDUCATED ON POC AND PT CONDITION.
[2023-05-14] VITALS (30 sets, daily range): BP systolic 104–136; BP diastolic 50–115
[2023-05-14 03:19] LABS: Hematocrit 27.2 % (37.0-53.0); Hemoglobin 9.4 g/dL (13.5-17.5); Mean Corpuscular HGB 33.8 pg (26.0-34.0); Mean Corpuscular HGB Conc 34.6 g/dL (31.5-36.5); Mean Corpuscular Volume 98 fL (80-100); Mean Platelet Volume 9.3 fL (9.1-12.4); Platelet Count 138 K/mm3 (150-400); RDW Coefficient Variation 15.5 % (11.7-14.2); RDW Standard Deviation 54.6 fL (35.1-46.3); Red Blood Cell Count 2.78 M/mm3 (4.30-5.90); White Blood Cell Count 4.15 K/mm3 (4.00-11.30)
[2023-05-14 04:09] LABS: Albumin, Blood 2.5 g/dL (3.4-5.0); Albumin/Globulin Ratio 0.7 (0.8-1.8); Bilirubin, Total 0.4 mg/dL (0.1-1.0); Bun/Creatinine Ratio 13.9 (12.0-20.0); Creatinine, Blood 1.15 mg/dL (0.60-1.20); Globulin, Blood 3.7 g/dL (2.2-4.0); Potassium, Blood 3.3 mmol/L (3.5-5.5); Total Protein, Blood 6.2 g/dL (6.4-8.2)
--- NOTE | 2023-05-14 06:09 | NUR ---
SHIFT SUMMARY NO ACUTE EVENTS T/O NIGHT. CALL TO HOSP REGARDING MORNING POTASSIUM AND CBG'S IN THE 140'S. ORDER FOR KCL AND TO LOWER D5 1/5NS TO 75ML/HR. PT A/O BUT DOES STATE "I DON'T KNOW" AT TIMES. ON RA WITH SPO2 GREATER THEN 92%. VSS. LEVOPHED ON SB. BP STABLE. SR RATE 60-80S. TRAMMELL PATENT AND DRAINING TO GRAVITY. WILL REPORT OFF TO ONCOMING RN.
--- NOTE | 2023-05-14 06:59 | NUR ---
ASSUMPTION OF CARE: ASSUMED CARE OF PATIENT WITH KIMBERLY WALKER COUNTS. PATIENT SLEEPING IN BED. PATIENT APPEARS COMFORTABLE. LEVOPHED ON SB. MAPS >65. SBP 120-130. D51/2NS RUNNING AT 75 MLS/HR. TRAMMELL IN PLACE AND DRAINING FREELY. SPO2 AT 98-99% ON RA. BREATHING IS EVEN AND REGULAR.
[2023-05-14 10:50] LABS: Percent Saturation 64.7 % (20.0-50.0)
--- NOTE | 2023-05-14 18:05 | NUR ---
SHIFT SUMMARY: NEURO/MUSCULOSKELETAL: PATIENT ALERT AND ORIENTED X4. PATIENT CONTINUES TO REPORT SOME GENERALIZED NUMBNESS/TINGLING AND SOME NUMBNESS INBETWEEN HIS FINGERS. PATIENT HAS INCREASED FINE MOTOR MOVEMENT. PATIENT ABLE TO FEED SELF WITH MINIMAL SET UP ASSISTANCE. PATIENT CONTINUES TO REPORT FINE TREMORS. PATIENT'S MOBILITY IMPROVED THROUGHOUT THE DAY. BY THE END OF THE SHIFT, PATIENT ABLE TO MOVE ARMS WITHOUT STRAIN, LIFT LEGS MINIMALLY OFF THE BED, AND ASSIST TURNING HIS BODY. PATIENT CONTINUES TO REPORT FATIGUE AND SLEPT MUCH OF THE DAY. RESPIRATORY: PATIENT CONTINUES TO BE STABLE ON ROOM AIR WITH SP02 95-100%. BREATHS ARE EVEN AND REGULAR. NO APNEIC PERIODS NOTED WITH SLEEPING. CARDIAC: BLOOD PRESSURES ARE STABLE. MAPS >65. HR IN THE 80S. CONTINUES TO HAVE SOME EDEMA IN BLE AND BUE. GI/: PATIENT HAS HAD AN EXCELLENT APPETITE. TRAMMELL CATHETER DISCONTINUED THIS AFTERNOON. PATIENT DENIED NEED TO VOID DURING THE SHIFT. WILL CONTINUE TO MONITOR WITH BLADDER SCANS. PATIENT REPORTS THAT HE SELF CATHS AT HOME YOSHI 5-6 HOURS AND THAT HE CAN SENSE A FULL BLADDER AT BASELINE. NO BOWEL MOVEMENTS. PSYCHSOCIAL: PATIENT'S DAUGHTER WAS UPDATED THIS MORNING. SHE IS APPRECIATIVE OF THE CARE AND REPORTS RELIEF ON HEARING HOW WELL HE IS DOING. SHE REPORTED THAT SHE HAD WORK TODAY AND WILL CONTINUE TO CHECK IN.
--- NOTE | 2023-05-15 00:51 | NUR ---
ASSUMED CARE ASSUMED CARE AT 1900. PT A/O X 4. MOVES ALL EXTREMITIES AND FOLLOWS COMMANDS. MUCH MORE MOBILE TODAY AND ABLE TO PARTICIPATE IN CARE. REMAINS WEAK IN BLE. D5 1/2NS AT 75ML/HR. VSS. NO TELE. LEFT ARM WITH MORE EDEMA THEN RIGHT. PT REPORTS IT "HURTS A LITTLE". PT ITCHING SCABS ON BACK AND ARMS. CALL TO HOSP, ORDER RECEIVED. PT ABLE TO REPORT WHEN HE NEEDS TO CATH AND STRAIGHT CATH DONE WITH GOOD OUTPUT. CALL LIGHT IN REACH.
[2023-05-15 03:38] LABS: Hematocrit 28.6 % (37.0-53.0); Hemoglobin 9.6 g/dL (13.5-17.5); Mean Corpuscular HGB 33.1 pg (26.0-34.0); Mean Corpuscular HGB Conc 33.6 g/dL (31.5-36.5); Mean Corpuscular Volume 99 fL (80-100); Mean Platelet Volume 9.4 fL (9.1-12.4); Platelet Count 155 K/mm3 (150-400); RDW Coefficient Variation 15.4 % (11.7-14.2); RDW Standard Deviation 55.2 fL (35.1-46.3)
[2023-05-15 03:57] VITALS: BP 146/81
[2023-05-15 04:04] LABS: BAND PERCENT MAN 12 % (0-8); BASOPHILS PERCENT MAN 0 % (0-2); EOSINOPHILS PERCENT MAN 0 % (0-6); LYMPHOCYTES ABSOLUTE MAN 0.35 K/mm3 (0.84-5.20); LYMPHOCYTES PERCENT MAN 9 % (21-46); MONOCYTES ABSOLUTE MAN 0.19 K/mm3 (0.16-1.47); MONOCYTES PERCENT MAN 5 % (4-13); NEUTROPHILS ABSOLUTE MAN 3.35 K/mm3 (1.96-9.15); SEG NEUTROPHILS PERCENT MAN 74 % (41-73); TOTAL CELLS COUNTED 100
[2023-05-15 04:07] LABS: Bun/Creatinine Ratio 12.5 (12.0-20.0); Calcium, Blood 8.2 mg/dL (8.5-10.1); Creatinine, Blood 1.2 mg/dL (0.60-1.20); Magnesium, Blood 1.4 mg/dL (1.6-2.4); Potassium, Blood 3.3 mmol/L (3.5-5.5)
--- NOTE | 2023-05-15 06:43 | NUR ---
SHIFT SUMMARY NO ACUTE EVENTS T/O NIGHT. VSS. ON RA. PT CATHETERIZED THREE TIMES T/O NIGHT USING 14F COUDE CATHETER. D5 1/2 NS CONTINUES AT 75ML/HR. HOSP CALLED REGARDING MORNING LABS. ORDERS RECEIVED. CALL LIGHT IN REACH. WILL REPORT OFF TO ONCOMING RN.
--- NOTE | 2023-05-15 07:44 | NUR ---
PT IS BEING STRAIGHT CATHED Q1.5-2 HOURS, HE IS REPORTING INCREASING PAIN WITH STRAIGHT CATHS. EACH CATH LAST NIGHT PROVIDED AROUND 700ML OUTPUT PER NOC SHIFT NURSE. NOC SHIFT NURSE HAD USED A 14FR COUDE TO STRAIGHT CATH, WHILE THE URINE WAS DRAINING I CALLED DR COSTELLO TO DISCUSS THE FREQUENCY AND DISCOMFORT, DR COSTELLO AGREES THAT WE SHOULD REPLACE THE TRAMMELL. PT IS UPDATED THAT CATH WILL STAY IN PLACE, HE IS HAPPILY AGREEABLE TO CATH REMAINING IN PLACE
[2023-05-15 08:48] VITALS: BP 144/79
--- NOTE | 2023-05-15 11:23 | NUR ---
PT IS RESTING WELL IN BED, SLEEPING WELL. DR COSTELLO HAS BEEN IN TO SEE HIM. FLUIDS ARE D/C'd, WILL ENCOURAGE FLUID INTAKE
--- NOTE | 2023-05-15 12:36 | NUR ---
PT CONTINUES TO SLEEP, RESTING WELL, HE HAD REPORTED THAT HE WAS NOT ABLE TO SLEEP AT ALL LAST NOC BECAUSE OF THE FREQUENCY OF THE STRAIGHT CATHING
[2023-05-15 14:46] VITALS: BP 147/70
--- NOTE | 2023-05-15 16:00 | NUR ---
STOOL SAMPLE HAS NOT BEEN COLLECTED PT HAS NOT HAD A STOOL. HE IS RESTING WELL TODAY, REPORTS THAT HE DID NOT SLEEP AT ALL LAST NOC. VSS. HAS A GOOD APPETITE FOR THIS SHIFT.
--- NOTE | 2023-05-15 23:02 | NUR ---
ASSUMED CARE ASSUMED CARE AT 1900. PT A/O X4. FOLLOWS COMMANDS AND MOVES ALL EXTREMITIES. STILL WEAK IN BLE. VSS. ON RA. NO TELE. NO IV GTTS AT THIS TIME. ENCOURAGED PT TO INCREASE PO FLUID INTAKE. PT STATES "DRINKING ALL THIS WATER MAKES ME NAUSEOUS". OFFERED TO CALL HOSP FOR MEDICATION AND PT DECLINED. PT REPORTS HE HALLUCINATED DURING THE DAY BUT DENIES ANY THIS EVENING. REPORT "ITS LIKE WATCHING TV WITH NO SOUND. TRAMMELL PATENT AND DRAINING TO GRAVITY. CALL LIGHT IN REACH.
[2023-05-16 03:36] LABS: Hematocrit 27.8 % (37.0-53.0); Hemoglobin 9.5 g/dL (13.5-17.5); Mean Corpuscular HGB 33.6 pg (26.0-34.0); Mean Corpuscular HGB Conc 34.2 g/dL (31.5-36.5); Mean Corpuscular Volume 98 fL (80-100); Mean Platelet Volume 9.3 fL (9.1-12.4); Platelet Count 166 K/mm3 (150-400); RDW Coefficient Variation 15.3 % (11.7-14.2); RDW Standard Deviation 54.8 fL (35.1-46.3); Red Blood Cell Count 2.83 M/mm3 (4.30-5.90); White Blood Cell Count 4.66 K/mm3 (4.00-11.30)
[2023-05-16 03:41] VITALS: BP 154/87
[2023-05-16 03:59] LABS: Albumin, Blood 2.5 g/dL (3.4-5.0); Albumin/Globulin Ratio 0.7 (0.8-1.8); Bilirubin, Total 0.3 mg/dL (0.1-1.0); Bun/Creatinine Ratio 13.8 (12.0-20.0); Calcium, Blood 8.1 mg/dL (8.5-10.1); Creatinine, Blood 1.16 mg/dL (0.60-1.20); Globulin, Blood 3.8 g/dL (2.2-4.0); Potassium, Blood 2.8 mmol/L (3.5-5.5); Total Protein, Blood 6.3 g/dL (6.4-8.2)
[2023-05-16 04:20] VITALS: BP 137/74
[2023-05-16 04:22] LABS: BAND PERCENT MAN 16 % (0-8); BASOPHILS PERCENT MAN 0 % (0-2); EOSINOPHILS ABSOLUTE MAN 0.13 K/mm3 (0.00-0.68); EOSINOPHILS PERCENT MAN 3 % (0-6); LYMPHOCYTES ABSOLUTE MAN 1.02 K/mm3 (0.84-5.20); LYMPHOCYTES PERCENT MAN 22 % (21-46); MONOCYTES ABSOLUTE MAN 0.79 K/mm3 (0.16-1.47); MONOCYTES PERCENT MAN 17 % (4-13); SEG NEUTROPHILS PERCENT MAN 42 % (41-73); TOTAL CELLS COUNTED 100
--- NOTE | 2023-05-16 04:23 | NUR ---
TRANSFER TO MEDICAL FLOOR TRANSFERRED TO 327 VIA BED WITH THIS RN AT BEDSIDE. VSS. BELONGINGS AND MEDICATIONS SENT WITH PT. PT ALERT, TALKING AND HAD NO COMPLAINTS.
[2023-05-16 07:11] VITALS: BP 170/72
--- NOTE | 2023-05-16 07:51 | NUR ---
[facility] JONO STEVE ARRIVED FROM ICU AROUND 409. HE WAS ALERT AND FULLY ORIENTED, DENIED C/P/PRESSURE AND SOB. PT IS PLEASANT AND COOPERATIVE, NO CHANGES IN CONDITION AFTER ARRIVAL, NO ACUTE EVENTS, NO PT COMPLAINTS. PT RESTING IN BED AT A LOW POSITION WITH CALL LIGHT IN REACH. LOW POTASSIUM VALUE 2.[address] COSTELLO @6286.
[2023-05-16 15:46] VITALS: BP 127/64
--- NOTE | 2023-05-16 17:13 | NUR ---
PATIENT A/OX4, WORKED WITH PT TODAY AND WAS ABLE TO AMBULATE WITH FWW AND 1 ASSIST. DENIES ANY PAIN OR DISCOMFORT. TOLERATING REGULAR DIET WITH THIN LIQUIDS. SKIN INTACT. TRAMMELL TO GRAVITY WITH YELLOW URINE OUTPUT, STRAIGHT CATHS AT BASELINE. NO NEW CONCERNS THIS SHIFT. PATIENT COOPERATIVE WITH CARE AND CALLS APPROPRIATELY.
[2023-05-16 19:28] VITALS: BP 142/67
[2023-05-17 05:15] VITALS: BP 146/78
[2023-05-17 06:22] LABS: BASOPHILS ABSOLUTE AUTO 0.01 K/mm3 (0.00-0.23); BASOPHILS PERCENT AUTO 0 % (0-2); EOSINOPHILS ABSOLUTE AUTO 0.07 K/mm3 (0.00-0.68); EOSINOPHILS PERCENT AUTO 2 % (0-6); IMMATURE GRAN ABSOLUTE AUTO 0.04 K/mm3 (0.00-0.10); IMMATURE GRAN PERCENT AUTO 1 % (0-1); LYMPHOCYTES ABSOLUTE AUTO 1.05 K/mm3 (0.84-5.20); LYMPHOCYTES PERCENT AUTO 23 % (21-46); MONOCYTES ABSOLUTE AUTO 0.54 K/mm3 (0.16-1.47); MONOCYTES PERCENT AUTO 12 % (4-13); Mean Corpuscular HGB 33.7 pg (26.0-34.0); Mean Corpuscular HGB Conc 34.5 g/dL (31.5-36.5); Mean Corpuscular Volume 98 fL (80-100); Mean Platelet Volume 9.4 fL (9.1-12.4); NEUTROPHILS ABSOLUTE AUTO 2.96 K/mm3 (1.96-9.15); NEUTROPHILS PERCENT AUTO 63 % (41-73); Platelet Count 196 K/mm3 (150-400); RDW Standard Deviation 53.7 fL (35.1-46.3); Red Blood Cell Count 2.97 M/mm3 (4.30-5.90); White Blood Cell Count 4.67 K/mm3 (4.00-11.30)
[2023-05-17 06:49] LABS: Bun/Creatinine Ratio 20.8 (12.0-20.0); Calcium, Blood 8.5 mg/dL (8.5-10.1); Creatinine, Blood 1.2 mg/dL (0.60-1.20); Free Thyroxine 1.01 ng/dL (0.70-1.60); Magnesium, Blood 1.6 mg/dL (1.6-2.4); Potassium, Blood 3.4 mmol/L (3.5-5.5)
[2023-05-17 07:15] VITALS: BP 178/76
[2023-05-17 15:34] VITALS: BP 115/67
--- NOTE | 2023-05-17 19:46 | NUR ---
SHIFT SUMMARY PATIENT AOX4 THROUGHOUT SHIFT BUT ALSO IMPULSIVE, HE DOES NOT CALL TO GET UP, BED ALARM AND CHAIR ALARM ACTIVE. AT 1715, PATIENT REPORTS HE IS SEEING GHOST CATS IN HIS ROOM AND HEARING THEM SOMETIMES, STATES HE SEES AND HEARS THESE OFTEN AND NOT JUST TODAY. DR COSTELLO NOTIFIED. BED IN LOW POSITION, CALL LIGHT IN REACH. PATIENT SOMETIMES USES CALL LIGHT BUT NOT WHEN HE NEEDS TO GET UP.
[2023-05-17 20:02] VITALS: BP 144/69
--- NOTE | 2023-05-18 05:03 | NUR ---
KEYSM[facility] SUMMARY VSS. CIWAS DONE ABOUT EVERY 4 HRS, VOICED SEEING OBJECTS THAT NO ONE ELSE COULD SEE. SLIGHT TREMORS, EASILY AGITAGED. BECAME VERY AGITATED, REFUSED TO REMAIN IN BED, UNSTEADY. PULLING AT CATHETER, NOTIFIED AND ORDERS FOR JERSON FOR SAFETY OBTAINED. IV ATIVAN ADMIN FOR S/S ELEVATED CIWAS. SEE MAR FOR DETAILS. CURRENTLY RESTING QUIETLY.RAILS UP X 3 FOR SAFETY. WILL CONTINUE TO MONITOR/ASSESS.
[2023-05-18 05:56] VITALS: BP 152/86
[2023-05-18] MEDS ORDERED: METO25ER PO (12:13)
[2023-05-18] MEDS ORDERED: VISBIOME 112.51 EACH PO (12:14)
[2023-05-18] MEDS ORDERED: HYDCOR20 PO (12:14)
[2023-05-18] MEDS ORDERED: Keflex500 MG PO (12:15)
[2023-05-18 15:14] VITALS: BP 116/68
--- NOTE | 2023-05-18 16:53 | NUR ---
PT SLEEPING AT START OF SHIFT. RESTING QUIETLY. PT NOT WANTING TO WAKE UP UNTIL THIS AFTERNOON. PT THEN AWAKE AND WANTING TO GO HOME. DR COSTELLO IN TO SEE PT; D/C ORDERS PLACED. PT'S NOTIFIED OF D/C ORDERS AND ON HER WAY TO TAKE PT HOME. PT ABLE TO DRESS HIMSELF WITH SBA FOR SAFETY. IV SITE D/C'D WNL'S. TRAMMELL CATH D/C'D PRIOR TO GET DRESSED. PT REPORTS STRAIGHT CATH AT HOME. DENIED FURTHER NEEDS AT THIS TIME. CALL LT IN REACH.
== END 2023-05-18 17:20 | disposition home or self-care (01) | DRG 698 ==
LOC: ER 05:33 → ICUE 07:20 → EDBEDREQ 08:23 → ICUE 09:21 → MEDS 05-16 04:26 → ENPENDDIS 05-18 12:47 → MEDS 05-18 17:20
PROVIDERS: Emergency Medicine; Internal Medicine; ADMIT Internal Medicine
PROC: 3E033XZ Introduction of Vasopressor into Peripheral Vein, Percutaneous Approach (ICD-10-PCS; principal; 2023-05-13)
PROC: 3E03329 Introduction of Other Anti-infective into Peripheral Vein, Percutaneous Approach (ICD-10-PCS; 2023-05-13)
PROC: HZ2ZZZZ Detoxification Services for Substance Abuse Treatment (ICD-10-PCS; 2023-05-13)
DX: T83.518A Infection and inflammatory reaction due to other urinary catheter, initial encounter (principal); A41.51 Sepsis due to Escherichia coli [E. coli]; R65.21 Severe sepsis with septic shock; J96.01 Acute respiratory failure with hypoxia; N39.0 Urinary tract infection, site not specified; E27.40 Unspecified adrenocortical insufficiency; F10.239 Alcohol dependence with withdrawal, unspecified; R00.1 Bradycardia, unspecified; R19.7 Diarrhea, unspecified; D69.59 Other secondary thrombocytopenia; D63.8 Anemia in other chronic diseases classified elsewhere; R33.9 Retention of urine, unspecified; M10.9 Gout, unspecified; E86.0 Dehydration; G31.2 Degeneration of nervous system due to alcohol; N31.8 Other neuromuscular dysfunction of bladder; S34.10 Unspecified injury to lumbar spinal cord; E16.2 Hypoglycemia, unspecified; E83.42 Hypomagnesemia; E87.6 Hypokalemia
CPT/HCPCS: 36415; 51701; 70450; 71045; 72170; 73080; 80048; 80053; 81001; 82140; 82728; 82803; 82947; 83540; 83550; 83605; 83690; 83735; 83880; 84100; 84439; 84443; 84484; 85007; 85025; 85027; 85610; 85730; 87040; 87077; 87086; 87186; 92526; 92610; 93005; 93010; 93306; 96361; 96365-59; 96366; 96375-59; 97110; 97116; 97162; 99285-25; A9270; C9113; G0480; J0696; J0878; J1644; J1720; J2060; J3411; J3475; J3480; J7030; J7042; J7050; J7060

== ENCOUNTER 2023-05-30 18:32 | Observation (INO) | payer MEDICARE ==
[~2023-05-30] VITALS: Ht 160 cm; Wt 72.6 kg
[~2023-05-30 18:32] MED LIST changes: +AMLO5 PO; +HYDCOR20 PO; +Keflex500 MG PO; +METO25ER PO; +VISBIOME 112.51 EACH PO
[2023-05-30 18:57] LABS: BASOPHILS ABSOLUTE AUTO 0.02 K/mm3 (0.00-0.23); BASOPHILS PERCENT AUTO 1 % (0-2); EOSINOPHILS PERCENT AUTO 2 % (0-6); Hematocrit 29.4 % (37.0-53.0); IMMATURE GRAN ABSOLUTE AUTO 0.01 K/mm3 (0.00-0.10); IMMATURE GRAN PERCENT AUTO 0 % (0-1); LYMPHOCYTES ABSOLUTE AUTO 1.05 K/mm3 (0.84-5.20); LYMPHOCYTES PERCENT AUTO 24 % (21-46); MONOCYTES ABSOLUTE AUTO 0.29 K/mm3 (0.16-1.47); MONOCYTES PERCENT AUTO 7 % (4-13); Mean Corpuscular HGB 33.6 pg (26.0-34.0); Mean Corpuscular Volume 99 fL (80-100); Mean Platelet Volume 9.3 fL (9.1-12.4); NEUTROPHILS ABSOLUTE AUTO 2.86 K/mm3 (1.96-9.15); NEUTROPHILS PERCENT AUTO 66 % (41-73); NRBC ABSOLUTE 0.02 K/mm3 (0.00-0.02); NRBC Auto 0.5 /100 WBC (0.0-0.2); Platelet Count 292 K/mm3 (150-400); RDW Coefficient Variation 15.2 % (11.7-14.2); RDW Standard Deviation 54.3 fL (35.1-46.3); Red Blood Cell Count 2.98 M/mm3 (4.30-5.90); White Blood Cell Count 4.33 K/mm3 (4.00-11.30)
[2023-05-30 19:21] LABS: Alanine Aminotransfer (ALT/SGP 28 U/L (12-78); Albumin, Blood 3.1 g/dL (3.4-5.0); Albumin/Globulin Ratio 0.8 (0.8-1.8); Alk Phos 80 U/L (50-136); Anion Gap 5 mmol/L (6-16); Aspartate Aminotrans (AST/SGOT 36 U/L (12-37); Bilirubin, Total 0.3 mg/dL (0.1-1.0); Blood Urea Nitrogen 23 mg/dL (8-24); Bun/Creatinine Ratio 22.1 (12.0-20.0); CO2, Blood 27 mmol/L (21-32); Calcium, Blood 8.3 mg/dL (8.5-10.1); Chloride, Blood 109 mmol/L (98-108); Creatinine, Blood 1.04 mg/dL (0.60-1.20); Ethanol (Alcohol), Blood, Med <3 mg/dL; Globulin, Blood 3.7 g/dL (2.2-4.0); Glomerular Filtration Rate 74 (60-); Glucose, Blood 90 mg/dL (70-99); Potassium, Blood 4.1 mmol/L (3.5-5.5); Sodium, Blood 141 mmol/L (136-145); Total Protein, Blood 6.8 g/dL (6.4-8.2)
[2023-05-30 19:54] LABS: Source, Urine Clean Catch
[2023-05-30 20:06] LABS: Appearance, Urine Hazy (Clear); Bilirubin, Urine Neg (Neg); Blood, Urine Neg (Neg); Glucose Qualitative, Urine Neg (Neg); Ketones, Urine Neg (Neg); Leukocyte Esterase, Urine 1+ (Neg); Nitrite, Urine Neg (Neg); Protein, Urine 2+ (Neg); Urobilinogen, Urine NORM (Normal); pH, Urine 6.5 (5.0-8.0)
[2023-05-30 20:09] LABS: Specific Gravity, Urine 1.015 (1.003-1.022)
[2023-05-30 20:24] LABS: Influenza A, PCR NEGATIVE (NEGATIVE); Influenza B, PCR NEGATIVE (NEGATIVE); Resp Syncytial Virus, PCR NEGATIVE (NEGATIVE); SARS-Cov-2 (COVID-19) PCR, MMC NEGATIVE (NEGATIVE)
[2023-05-30 20:44] LABS: Color, Urine Pale Yellow (P-Yellow)
[2023-05-30 20:45] LABS: Red Blood Cells, Urine 0-2 /hpf (0-2); Squamous Epithelial Cells Rare /hpf (Few)
[2023-05-30 20:46] LABS: Bacteria Mod /hpf
[2023-05-31 01:47] VITALS: BP 149/76
[2023-05-31] MEDS ORDERED: HYDCOR20 PO (01:48)
[2023-05-31] MEDS ORDERED: PANTOPRAZOLE SO40 M2 PO (01:49)
[2023-05-31] MEDS ORDERED: HYDCOR2.5C PR (02:17)
[2023-05-31 05:05] LABS: BASOPHILS ABSOLUTE AUTO 0.03 K/mm3 (0.00-0.23); BASOPHILS PERCENT AUTO 1 % (0-2); EOSINOPHILS ABSOLUTE AUTO 0.09 K/mm3 (0.00-0.68); EOSINOPHILS PERCENT AUTO 3 % (0-6); Hematocrit 28.4 % (37.0-53.0); Hemoglobin 9.6 g/dL (13.5-17.5); IMMATURE GRAN ABSOLUTE AUTO 0.01 K/mm3 (0.00-0.10); IMMATURE GRAN PERCENT AUTO 0 % (0-1); LYMPHOCYTES PERCENT AUTO 31 % (21-46); MONOCYTES ABSOLUTE AUTO 0.29 K/mm3 (0.16-1.47); MONOCYTES PERCENT AUTO 8 % (4-13); Mean Corpuscular HGB 33.7 pg (26.0-34.0); Mean Corpuscular HGB Conc 33.8 g/dL (31.5-36.5); Mean Corpuscular Volume 100 fL (80-100); Mean Platelet Volume 9.5 fL (9.1-12.4); NEUTROPHILS PERCENT AUTO 57 % (41-73); NRBC ABSOLUTE 0.02 K/mm3 (0.00-0.02); NRBC Auto 0.6 /100 WBC (0.0-0.2); Platelet Count 275 K/mm3 (150-400); RDW Coefficient Variation 15.5 % (11.7-14.2); RDW Standard Deviation 55.1 fL (35.1-46.3); Red Blood Cell Count 2.85 M/mm3 (4.30-5.90); White Blood Cell Count 3.52 K/mm3 (4.00-11.30)
[2023-05-31 05:31] LABS: Albumin, Blood 2.8 g/dL (3.4-5.0); Albumin/Globulin Ratio 0.8 (0.8-1.8); Bilirubin, Total 0.3 mg/dL (0.1-1.0); Bun/Creatinine Ratio 23.5 (12.0-20.0); Calcium, Blood 7.9 mg/dL (8.5-10.1); Creatinine, Blood 0.98 mg/dL (0.60-1.20); Globulin, Blood 3.5 g/dL (2.2-4.0); Potassium, Blood 3.7 mmol/L (3.5-5.5); Total Protein, Blood 6.3 g/dL (6.4-8.2)
[2023-05-31 07:43] VITALS: BP 142/87
--- NOTE | 2023-05-31 07:47 | NUR ---
SHIFT SUMMARY A/OX3. ROOM AIR. SCABS R/T PSORIASIS SCATTER T/O ARMS AND BACK. SHORT TERM MEMORY IMPAIRED CANNOT REMEMBER PAST TWO DAYS, THOUGHT TODAY WAS TUESDAY. CIWA MONITORING AND PROTOCOL IN PLACE. PATIENT CATHETERIZES HIMSELF AT HOME, BLADDER MANAGEMENT PROTOCOL IN PLACE. CONTINENT OF BOWEL. PT/OT TO EVAL. ABLE TO MAKE NEEDS KNOWN, CALL LIGHT IN REACH. BED LOCKED IN LOW POSITION.
[2023-05-31 15:35] VITALS: BP 125/71
--- NOTE | 2023-05-31 17:18 | NUR ---
SHIFT SUMMARY: PT A/O X 4 ONE ASSIST WITH WALKER AND GB, PLEASANT AND COOPERATIVE WITH CARE. PT CONTINUES TO REPORT DIZZINESS WITH AMBULATION THROUGHOUT THE DAY. PT ALSO REPORTS "HEAD FEELS TIGHT. NO S/S OF APHASIA BUT PT FEELS LIKE HE HAS A HARD TIME WITH ANSWERING QUESTIONS. REPORTS NEW ONSET NUMBNESS TO FEET WITH AMBULATION. NO OTHER DEFICITS NOTED. CIWA HAS BEEN BETWEEN 0-2 DUE TO BEING DIAPHORETIC AT TIMES. PT REPORTED CHILLS AT ONE TIME BUT WAS AFEBRILE. VSS. STRAIGHT CATH TODAY ONE TIME. PT EATING WELL, NO REPORTS OF PAIN.
[2023-05-31 18:47] VITALS: BP 122/59
[2023-05-31 19:30] VITALS: BP 124/61
--- NOTE | 2023-06-01 01:44 | NUR ---
ATTEMPTED STRAIGHT CATH AT PT'S REQUEST. NO URINE PRESENTED IN TUBE. PERFORMED BLADDER SCAN WHICH SHOWED 65 ML IN PT'S BLADDER. PT STATED HE HAS NOT DRUNK MUCH WATER SINCE LAST STRAIGHT CATH. ENCOURAGED PT TO DRINK WATER AND WILL ATTEMPT STRAIGHT CATH AGAIN.
[2023-06-01 02:16] VITALS: BP 137/75
[2023-06-01 05:41] LABS: BASOPHILS ABSOLUTE AUTO 0.02 K/mm3 (0.00-0.23); BASOPHILS PERCENT AUTO 1 % (0-2); EOSINOPHILS PERCENT AUTO 3 % (0-6); Hematocrit 27.1 % (37.0-53.0); Hemoglobin 9.3 g/dL (13.5-17.5); IMMATURE GRAN ABSOLUTE AUTO 0.01 K/mm3 (0.00-0.10); IMMATURE GRAN PERCENT AUTO 0 % (0-1); LYMPHOCYTES ABSOLUTE AUTO 1.28 K/mm3 (0.84-5.20); LYMPHOCYTES PERCENT AUTO 35 % (21-46); MONOCYTES ABSOLUTE AUTO 0.37 K/mm3 (0.16-1.47); MONOCYTES PERCENT AUTO 10 % (4-13); Mean Corpuscular HGB 34.1 pg (26.0-34.0); Mean Corpuscular HGB Conc 34.3 g/dL (31.5-36.5); Mean Corpuscular Volume 99 fL (80-100); Mean Platelet Volume 9.6 fL (9.1-12.4); NEUTROPHILS ABSOLUTE AUTO 1.91 K/mm3 (1.96-9.15); NEUTROPHILS PERCENT AUTO 52 % (41-73); Platelet Count 242 K/mm3 (150-400); RDW Coefficient Variation 15.8 % (11.7-14.2); RDW Standard Deviation 56.5 fL (35.1-46.3); Red Blood Cell Count 2.73 M/mm3 (4.30-5.90); White Blood Cell Count 3.69 K/mm3 (4.00-11.30)
[2023-06-01 05:56] LABS: Bun/Creatinine Ratio 18.3 (12.0-20.0); Calcium, Blood 8.4 mg/dL (8.5-10.1); Creatinine, Blood 1.09 mg/dL (0.60-1.20); Potassium, Blood 3.8 mmol/L (3.5-5.5)
--- NOTE | 2023-06-01 06:20 | NUR ---
SHIFT SUMMARY: POWER IS A&OX4. VSS, NO ACUTE EVENTS THIS SHIFT. STRAIGHT CATH X 2 THIS SHIFT. HE IS TOLERATING PO INTAKE WELL, DENIES ANY NEW OR WORSENING SYMPTOMS, AND IS LYING QUIETLY IN BED WITH HIS EYES CLOSED AND SNORING RESPIRATIONS. HE IS A ONE-PERSON ASSIST TO THE BATHROOM. HE IS LYING IN BED WITH THE CALL LIGHT IN REACH. WCTM UNTIL REPORT IS GIVEN TO MARKING STITCHER RN.
[2023-06-01 07:29] VITALS: BP 148/74
[2023-06-01 08:12] VITALS: BP 158/79
[2023-06-01 16:06] VITALS: BP 140/72
--- NOTE | 2023-06-01 16:48 | NUR ---
PT AOX4 AND COOPERATIVE OF CARE. PT DENIED FEELING DIZZY TODAY AND WAS ABLE TO WORK WITH PT TODAY AND SAT UP IN CHAIR. PT WAS STRAIGHT CATHED X2 ON REQUEST. SHAWANDA HOSE WERE APPLIED PER DR BULLOCK'S ORDER. PT DID NOT HAVE ANY EPISODES OF WITHDRAWL TODAY AND NO CIWA WAS NEEDED. CALL LIGHT IS WITHIN REACH WILL CONTINUE TO MONITOR.
[2023-06-01 19:34] VITALS: BP 133/99
[2023-06-02 03:51] VITALS: BP 154/82
--- NOTE | 2023-06-02 05:17 | NUR ---
MANAGER LAN SUMMARY VSS. UP TO BATHROOM FOR BM AT SHIFT HS. HAS BEEN STRAIGHT CATHED X 2 WITH ASPETIC TECHNIQUE PT VOICED CANT VOID ON HIS OWN, AND AT HOME CATHS HIMSELF. HAS BEEN RESTING QUIETLY WITH FEW INTERRUPTIONS. RESPS EVEN, NO NOTED S/S ACUTE DISTRESS. ALERT AND ORIENTED. MED Dealer [employer]ition SR. CALL LIGHT IN REACH. RAILS UP X 2 FOR SAFETY. NO NOTED S/S VERTIGO. WILL CONTINUE TO MONITOR
[2023-06-02 07:24] VITALS: BP 156/83
[2023-06-02] MEDS ORDERED: HYDCOR20 PO (11:14)
--- NOTE | 2023-06-02 14:44 | NUR ---
PT DISCHARGED AT 1430 VIA WHEEL CHAIR. ALL PAPERWORK WAS REVIEWED AND PHARMACIST HAS REVIEWED MEDICATION WITH PT. PT WAS ALSO INSTRUCTED HE HAS TO PV INSTALLER TECH MEDICATION AT [facility]. PT HAS BEEN GOOD TODAY AND DENIED ANY DIZZY SPELLS. PT AOX4 AND COOPERATIVE OF ALL CARE. PT A STANDBY ASSIST. ESCORTED OUT TO ENTRANCE WITH TO TRANSFER HOME.
== END 2023-06-02 14:30 | disposition home or self-care (01) ==
LOC: ER 18:32 → MEDS 18:33
PROVIDERS: Emergency Medicine; Internal Medicine; ADMIT Internal Medicine
DX: G93.41 Metabolic encephalopathy (principal); E27.40 Unspecified adrenocortical insufficiency; I87.2 Venous insufficiency (chronic) (peripheral); E66.9 Obesity, unspecified
CPT/HCPCS: 0241U; 36415; 51701; 70450; 71045; 80048; 80053; 81001; 82533; 83605; 84145; 85025; 87040; 87086; 93005; 93010; 96361; 96372; 96374; 97110; 97110-CO; 97112; 97161; 97165; 97530; 97535; 97535-CO; 99285-25; A9270; G0378; J0696; J1650; J7030

== ENCOUNTER 2023-06-19 19:10 | Inpatient (IN) | payer MEDICARE ==
[~2023-06-19] VITALS: Ht 182.9 cm; Wt 86.4 kg
[~2023-06-19 19:10] MED LIST changes: +HYDCOR2.5C PR; +PANTOPRAZOLE SO40 M2 PO
[2023-06-19 19:32] LABS: BASOPHILS ABSOLUTE AUTO 0.01 K/mm3 (0.00-0.23); BASOPHILS PERCENT AUTO 0 % (0-2); EOSINOPHILS ABSOLUTE AUTO 0.11 K/mm3 (0.00-0.68); EOSINOPHILS PERCENT AUTO 3 % (0-6); Hematocrit 30.7 % (37.0-53.0); Hemoglobin 10.2 g/dL (13.5-17.5); IMMATURE GRAN ABSOLUTE AUTO 0.01 K/mm3 (0.00-0.10); IMMATURE GRAN PERCENT AUTO 0 % (0-1); LYMPHOCYTES ABSOLUTE AUTO 1.56 K/mm3 (0.84-5.20); LYMPHOCYTES PERCENT AUTO 42 % (21-46); MONOCYTES PERCENT AUTO 11 % (4-13); Mean Corpuscular HGB 34.1 pg (26.0-34.0); Mean Corpuscular HGB Conc 33.2 g/dL (31.5-36.5); Mean Corpuscular Volume 103 fL (80-100); Mean Platelet Volume 9.8 fL (9.1-12.4); NEUTROPHILS ABSOLUTE AUTO 1.65 K/mm3 (1.96-9.15); NEUTROPHILS PERCENT AUTO 44 % (41-73); Platelet Count 160 K/mm3 (150-400); RDW Coefficient Variation 15.7 % (11.7-14.2); RDW Standard Deviation 59.1 fL (35.1-46.3); Red Blood Cell Count 2.99 M/mm3 (4.30-5.90); White Blood Cell Count 3.74 K/mm3 (4.00-11.30)
[2023-06-19 19:53] LABS: Alanine Aminotransfer (ALT/SGP 22 U/L (12-78); Albumin, Blood 2.7 g/dL (3.4-5.0); Albumin/Globulin Ratio 0.8 (0.8-1.8); Alk Phos 83 U/L (50-136); Anion Gap 3 mmol/L (6-16); Aspartate Aminotrans (AST/SGOT 25 U/L (12-37); Bilirubin, Total 0.4 mg/dL (0.1-1.0); Blood Urea Nitrogen 28 mg/dL (8-24); Bun/Creatinine Ratio 24.8 (12.0-20.0); CO2, Blood 26 mmol/L (21-32); Calcium, Blood 8.2 mg/dL (8.5-10.1); Chloride, Blood 120 mmol/L (98-108); Creatinine, Blood 1.13 mg/dL (0.60-1.20); Globulin, Blood 3.6 g/dL (2.2-4.0); Glomerular Filtration Rate 67 (60-); Glucose, Blood 82 mg/dL (70-99); Potassium, Blood 3.4 mmol/L (3.5-5.5); Sodium, Blood 149 mmol/L (136-145); Total Protein, Blood 6.3 g/dL (6.4-8.2)
[2023-06-19 20:31] LABS: Ethanol (Alcohol), Blood, Med <3 mg/dL; Magnesium, Blood 1.4 mg/dL (1.6-2.4); Phosphorus, Blood 3.1 mg/dL (2.5-4.9)
[2023-06-19 22:56] LABS: Source, Urine Clean Catch
[2023-06-19 23:03] LABS: Bilirubin, Urine Neg (Neg); Blood, Urine Neg (Neg); Glucose Qualitative, Urine Neg (Neg); Ketones, Urine Neg (Neg); Leukocyte Esterase, Urine 2+ (Neg); Nitrite, Urine Pos (Neg); Protein, Urine Neg (Neg); Urobilinogen, Urine NORM (Normal)
[2023-06-19 23:12] LABS: Appearance, Urine Hazy (Clear); Bacteria Many /hpf; Color, Urine Yellow (P-Yellow); Red Blood Cells, Urine Not Seen /hpf (0-2); Squamous Epithelial Cells Not Seen /hpf (Few)
[2023-06-19 23:18] LABS: U Amphetamine Screen Not Detected; U Barbituate Screen Not Detected; U Benzodiazapine Screen Not Detected; U Buprenorphine Screen Not Detected; U Cannabinoids Screen Not Detected; U Cocaine Screen Not Detected; U Methadone Screen Not Detected; U Methamphetamine Screen Not Detected; U Opiates Screen Not Detected; U Oxycodone Screen Not Detected; U Phencyclidine Screen Not Detected
[2023-06-19 23:36] LABS: Influenza A, PCR NEGATIVE (NEGATIVE); Influenza B, PCR NEGATIVE (NEGATIVE); Resp Syncytial Virus, PCR NEGATIVE (NEGATIVE); SARS-Cov-2 (COVID-19) PCR, MMC NEGATIVE (NEGATIVE)
[2023-06-20 00:08] LABS: Free Thyroxine 0.96 ng/dL (0.70-1.60)
[2023-06-20 00:09] LABS: Triiodothyronine, Free 1.81 pg/mL (2.18-3.98)
[2023-06-20 00:42] LABS: BASOPHILS ABSOLUTE AUTO 0.02 K/mm3 (0.00-0.23); BASOPHILS PERCENT AUTO 1 % (0-2); EOSINOPHILS ABSOLUTE AUTO 0.09 K/mm3 (0.00-0.68); EOSINOPHILS PERCENT AUTO 3 % (0-6); Hematocrit 29.7 % (37.0-53.0); Hemoglobin 9.9 g/dL (13.5-17.5); IMMATURE GRAN ABSOLUTE AUTO 0.02 K/mm3 (0.00-0.10); IMMATURE GRAN PERCENT AUTO 1 % (0-1); LYMPHOCYTES ABSOLUTE AUTO 1.58 K/mm3 (0.84-5.20); LYMPHOCYTES PERCENT AUTO 49 % (21-46); MONOCYTES ABSOLUTE AUTO 0.33 K/mm3 (0.16-1.47); MONOCYTES PERCENT AUTO 10 % (4-13); Mean Corpuscular HGB 34.1 pg (26.0-34.0); Mean Corpuscular HGB Conc 33.3 g/dL (31.5-36.5); Mean Corpuscular Volume 102 fL (80-100); Mean Platelet Volume 10.1 fL (9.1-12.4); NEUTROPHILS ABSOLUTE AUTO 1.22 K/mm3 (1.96-9.15); NEUTROPHILS PERCENT AUTO 37 % (41-73); NRBC ABSOLUTE 0.02 K/mm3 (0.00-0.02); NRBC Auto 0.6 /100 WBC (0.0-0.2); Platelet Count 175 K/mm3 (150-400); RDW Coefficient Variation 15.5 % (11.7-14.2); White Blood Cell Count 3.26 K/mm3 (4.00-11.30)
[2023-06-20 01:01] VITALS: BP 143/70
[2023-06-20 01:01] LABS: Albumin, Blood 2.7 g/dL (3.4-5.0); Albumin/Globulin Ratio 0.8 (0.8-1.8); Bilirubin, Total 0.4 mg/dL (0.1-1.0); Bun/Creatinine Ratio 23.2 (12.0-20.0); Calcium, Blood 8.4 mg/dL (8.5-10.1); Creatinine, Blood 1.12 mg/dL (0.60-1.20); Globulin, Blood 3.5 g/dL (2.2-4.0); Magnesium, Blood 1.5 mg/dL (1.6-2.4); Potassium, Blood 3.4 mmol/L (3.5-5.5); Total Protein, Blood 6.2 g/dL (6.4-8.2)
[2023-06-20 03:46] VITALS: BP 127/74
[2023-06-20 04:28] LABS: Source, Urine Foley catheter
[2023-06-20 04:38] LABS: Bilirubin, Urine Neg (Neg); Blood, Urine Neg (Neg); Glucose Qualitative, Urine Neg (Neg); Ketones, Urine Neg (Neg); Leukocyte Esterase, Urine 2+ (Neg); Nitrite, Urine Pos (Neg); Protein, Urine 2+ (Neg); Urobilinogen, Urine NORM (Normal)
[2023-06-20 05:04] LABS: Appearance, Urine Hazy (Clear); Color, Urine Pale Yellow (P-Yellow)
[2023-06-20 05:05] LABS: Amorphous Heavy (0-Heavy); Bacteria Many /hpf; Mucus Light (0-Heavy); Red Blood Cells, Urine Not Seen /hpf (0-2); Squamous Epithelial Cells Not Seen /hpf (Few); White Blood Cells, Urine 25-50 /hpf (0-5)
--- NOTE | 2023-06-20 06:01 | NUR ---
PT HAD C/O OF BURNING SENSATION IN BLADDER. BLADDER SCAN PERFORMED AND PT HAD 977ML IN BLADDER. HOSPITALIST NOTIFIED AND ORDER FOR FOLE CATHETER GIVEN. TRAMMELL PLACED AND 1150ML EMPTIED FROM BLADDER SO FAR.
--- NOTE | 2023-06-20 06:08 | NUR ---
SHIFT SUMMARY NOC PT A/O 2-3. SOMNULENT AND LETHARGIC. ADMIT FROM ED WITH ACUTE ENCEPHALOPATHY/UTI. A FEW HOURS AFTER ADMIT PT BEGAN TO MOAN AND YELL OUT, WHEN CHECKED ON PT STATED THAT THEY NEEDED TO HAVE A BM AND WAS 2[place] TO [facility] WHERE PT HAD XL BM. AFTER RETURNING PT TO BED PT HAD C/O OF BURNING SENSATION IN BLADDER, BLADDER SCAN PERFORMED AND PT FOUND TO HAVE 977ML OF URINE IN BLADDER. URINE CATHETER ORDER OBTAINED FROM HOSPITALIST AND TRAMMELL PLACED WITH OUTPUT OF 1150ML. PT REPORTS BURNING SENSATION HAS SUBSIDED NOW. PT IS ON TELE RUNNING SINUS RHYTHM IN LOW 60'S. PT GOT MG SULFATE REPLACEMENT FOR 1.4 MG. HAS D5W 1/2 NS IN KCL 20 MEQ INFUSING @ 100 ML/HR. PT IS CURRENTLY RESTING WITH BED IN LOWEST POSITION, AND CALL LIGHT WITHIN REACH.
[2023-06-20 07:26] VITALS: BP 132/74
[2023-06-20 17:17] VITALS: BP 139/68
[2023-06-20 19:29] VITALS: BP 129/65
--- NOTE | 2023-06-20 20:15 | NUR ---
SHIFT SUMMARY: POWER IS A&OX3-4. VSS, NO ACUTE EVENTS THIS SHIFT. HE IS TOLERATING PO INTAKE WELL, TRAMMELL PATENT, ATTENDS IN PLACE, AND CONTINENT OF BOWEL. PT REPORTS FEELING WEAK, BUT STATES THAT HE HAD NOT EATEN FOR THE PAST FEW DAYS PRIOR TO ADMISSION TO THE HOSPITAL. SOME PURULENT MATERIAL NOTED IN THE TRAMMELL CATHETER. PT TAKES PILLS WHOLE WITH WATER WITHOUT DIFFICULTY. HE IS LYING IN BED WITH THE CALL LIGHT IN REACH. REPORT WAS GIVEN TO WAREHOUSE ASSEMBLY WORKER RN.
--- NOTE | 2023-06-21 03:34 | NUR ---
SHIFT SUMMARY PT A&O X4, COOPERATIVE WITH CARE. CIWA'S COMPLETED WITH SCORE LESS THAN 8. PT HAS TRAMMELL IN PLACE, PATENT AND DRAINING YELLOW, CLOUDY URINE. TELEMETRY: SR @ 66 WITH 1ST DEG HB. NO ACUTE EVENTS OVERNIGHT. VITAL SIGNS REVIEWED. BED KEPT IN LOWEST POSITION WITH CALL LIGHT WITHIN REACH. WILL CONTINUE TO MONITOR.
[2023-06-21 04:34] VITALS: BP 129/58
[2023-06-21 05:36] LABS: BASOPHILS ABSOLUTE AUTO 0.01 K/mm3 (0.00-0.23); BASOPHILS PERCENT AUTO 0 % (0-2); EOSINOPHILS PERCENT AUTO 3 % (0-6); Hematocrit 28.3 % (37.0-53.0); Hemoglobin 9.4 g/dL (13.5-17.5); IMMATURE GRAN ABSOLUTE AUTO 0.01 K/mm3 (0.00-0.10); IMMATURE GRAN PERCENT AUTO 0 % (0-1); LYMPHOCYTES ABSOLUTE AUTO 1.73 K/mm3 (0.84-5.20); LYMPHOCYTES PERCENT AUTO 51 % (21-46); MONOCYTES ABSOLUTE AUTO 0.39 K/mm3 (0.16-1.47); MONOCYTES PERCENT AUTO 12 % (4-13); Mean Corpuscular HGB 34.2 pg (26.0-34.0); Mean Corpuscular HGB Conc 33.2 g/dL (31.5-36.5); Mean Corpuscular Volume 103 fL (80-100); Mean Platelet Volume 10.1 fL (9.1-12.4); NEUTROPHILS ABSOLUTE AUTO 1.13 K/mm3 (1.96-9.15); NEUTROPHILS PERCENT AUTO 34 % (41-73); NRBC ABSOLUTE 0.02 K/mm3 (0.00-0.02); NRBC Auto 0.6 /100 WBC (0.0-0.2); Platelet Count 158 K/mm3 (150-400); RDW Coefficient Variation 15.3 % (11.7-14.2); RDW Standard Deviation 57.3 fL (35.1-46.3); Red Blood Cell Count 2.75 M/mm3 (4.30-5.90); White Blood Cell Count 3.37 K/mm3 (4.00-11.30)
[2023-06-21 05:59] LABS: Albumin, Blood 2.6 g/dL (3.4-5.0); Anion Gap 5 mmol/L (6-16); Blood Urea Nitrogen 23 mg/dL (8-24); Bun/Creatinine Ratio 17.3 (12.0-20.0); CO2, Blood 25 mmol/L (21-32); Calcium, Blood 8.6 mg/dL (8.5-10.1); Chloride, Blood 115 mmol/L (98-108); Creatinine, Blood 1.33 mg/dL (0.60-1.20); Glomerular Filtration Rate 55 (60-); Glucose, Blood 88 mg/dL (70-99); Magnesium, Blood 1.6 mg/dL (1.6-2.4); Phosphorus, Blood 3.5 mg/dL (2.5-4.9); Potassium, Blood 3.5 mmol/L (3.5-5.5); Sodium, Blood 145 mmol/L (136-145)
[2023-06-21 07:34] VITALS: BP 142/69
[2023-06-21 17:01] VITALS: BP 121/69
--- NOTE | 2023-06-21 18:33 | NUR ---
SHIFT SUMMARY: PT ORIENTED TO SELF, PERSON, AND PLACE. PLEASANT AND COOPERATIVE WTH CARE. NO S/S OF ALCOHOL WITHDRAWAL NOTED FROM THIS RN TODAY. TRAMMELL IN PLACE DRAINING YELLOW CLOUDY URINE TO GRAVITY. TELE IN PLACE RUNNING SINUS RHYHTM WITH 1ST DEGREE HB. PT WORKED WITH PT THIS SHIFT. RECOMMENDING HOME HEALTH. PT C/O DIZZINESS WHEN WALKING WITH PT. CALL LIGHT IN REACH. CURRENTLY UP IN CHAIR EATING DINNER. WILL REPORT TO ONCOMING RN.
[2023-06-21 19:43] VITALS: BP 128/62
[2023-06-22 04:17] VITALS: BP 145/73
--- NOTE | 2023-06-22 05:21 | NUR ---
SHIFT SUMMARY VSS, TELE READS SR 62 W/1ST DEGREE BLOCK. PT SLEPT ON AND OFF T/O THE NIGHT. PT WAS ABLE TO AMBULATE TO [facility] W/ 1 ASSIST TO HAVE A BM. LARGE AMOUNTS OF FLATTUS NOTED. TRAMMELL REMAINS IN PLACE, PATENT. YELLOW CLEAR URINE NOTED. PT TOLLERATING PO INTAKE W/O N/V. CIWA WHEN SCORRED WAS A 7. PT DENIES EXPERIENCING WITHDRAWL SYMPTOMS. NO ACUTE EVENTS NOTED T/O THE NIGHT. PLAN TO CONTINUE MEDICATION THERAPY AND AWAIT URINE CULTURE RESULTS. PT TO D/C W/ HH.
[2023-06-22 07:32] VITALS: BP 156/79
[2023-06-22 17:13] VITALS: BP 129/65
--- NOTE | 2023-06-22 18:30 | NUR ---
SHIFT SUMMARY PT REPORTS HX OF DAMAGE TO BACK CAUSING NUMBNESS TO LE'S BUT IS ABLE TO WALK-HE HAS TO WATCH WHERE HIS FEET GO SO NOT TO TRIP OVER ANYTHING DUE TO NUMBNESS. WALKED A SHORT BIT IN HALLWAY WITH P.T. AND HAS SAT IN CHAIR SINCE LUNCH. REPORTED FEELING LIKE HIS SPEECH WAS "NOT RIGHT" LIKE HE COULDN'T CONTROL HIS TONGUE WELL AND HAD DIFFICULTY SWALLOWING PILLS. LATER PILLS WERE EASILY SWALLOWED WITH APPLESAUCE. REPORTS AT END OF DAY SPEECH TO CONTINUE TO FEEL NOT NORMAL FOR HIM. MD AWARE. NEURO CHECKS COMPLETED SEVERAL TIMES TODAY WITH NO CHANGE. NO COUGHING NOTED WHILE EATING HIS MEALS. REPORTS FEELING DIZZY. MECLIZINE GIVEN BUT STATED IT DIDN'T MAKE ANY DIFFERENCE IN HIS FEELING DIZZY. THE DIZZIINESS IS WORSE WHEN HE IS UP WALKING.
[2023-06-22 20:19] VITALS: BP 123/75
[2023-06-22] MEDS ORDERED: METOPROLOL SUCC25 MG PO (20:52)
[2023-06-23 00:53] LABS: ADRENOCORTICOTROPIC HORMONE <1.5 pg/mL (7.2-63.3)
[2023-06-23 03:04] VITALS: BP 154/74
[2023-06-23 05:24] LABS: BASOPHILS ABSOLUTE AUTO 0.02 K/mm3 (0.00-0.23); BASOPHILS PERCENT AUTO 1 % (0-2); EOSINOPHILS ABSOLUTE AUTO 0.11 K/mm3 (0.00-0.68); EOSINOPHILS PERCENT AUTO 3 % (0-6); Hemoglobin 10.1 g/dL (13.5-17.5); IMMATURE GRAN ABSOLUTE AUTO 0.01 K/mm3 (0.00-0.10); IMMATURE GRAN PERCENT AUTO 0 % (0-1); LYMPHOCYTES ABSOLUTE AUTO 0.99 K/mm3 (0.84-5.20); LYMPHOCYTES PERCENT AUTO 29 % (21-46); MONOCYTES ABSOLUTE AUTO 0.36 K/mm3 (0.16-1.47); MONOCYTES PERCENT AUTO 11 % (4-13); Mean Corpuscular HGB 33.9 pg (26.0-34.0); Mean Corpuscular HGB Conc 33.7 g/dL (31.5-36.5); Mean Corpuscular Volume 101 fL (80-100); Mean Platelet Volume 10.2 fL (9.1-12.4); NEUTROPHILS ABSOLUTE AUTO 1.94 K/mm3 (1.96-9.15); NEUTROPHILS PERCENT AUTO 57 % (41-73); Platelet Count 147 K/mm3 (150-400); RDW Coefficient Variation 14.8 % (11.7-14.2); RDW Standard Deviation 54.8 fL (35.1-46.3); Red Blood Cell Count 2.98 M/mm3 (4.30-5.90); White Blood Cell Count 3.43 K/mm3 (4.00-11.30)
[2023-06-23 05:59] LABS: Magnesium, Blood 1.4 mg/dL (1.6-2.4)
[2023-06-23 06:00] LABS: Albumin, Blood 2.8 g/dL (3.4-5.0); Anion Gap 7 mmol/L (6-16); Blood Urea Nitrogen 22 mg/dL (8-24); Bun/Creatinine Ratio 16.3 (12.0-20.0); CO2, Blood 23 mmol/L (21-32); Chloride, Blood 112 mmol/L (98-108); Creatinine, Blood 1.35 mg/dL (0.60-1.20); Glomerular Filtration Rate 54 (60-); Glucose, Blood 89 mg/dL (70-99); Phosphorus, Blood 4.3 mg/dL (2.5-4.9); Potassium, Blood 3.8 mmol/L (3.5-5.5); Sodium, Blood 142 mmol/L (136-145)
--- NOTE | 2023-06-23 06:39 | NUR ---
SHIFT SUMMARY: POWER IS A&OX2-3. VSS, NO ACUTE EVENTS THIS SHIFT. HE IS TOLERATING PO INTAKE WELL, TRAMMELL PATENT WITH THE COLLECTION BAG HANGING ABOVE THE GROUND, AND IS A ONE-PERSON ASSIST TO THE BED FROM THE BEDSIDE CHAIR. PT STATES THAT HE STILL FEELS HIS VOICE DOESN'T SOUND NORMAL AND THAT SWALLOWING IS MORE DIFFICULT THAN IT USUALLY IS. HE IS LYING IN BED WITH THE CALL LIGHT IN REACH. WILL GIVE REPORT TO DAY SHIFT NURSE.
[2023-06-23 07:29] VITALS: BP 122/75
[2023-06-23 09:36] LABS: ALDOSTERONE <3.0 ng/dL
[2023-06-23 15:34] VITALS: BP 113/66
--- NOTE | 2023-06-23 18:27 | NUR ---
SHIFT SUMMARY PT WORKED WITH P.T. TODAY AND AMBULATED IN THE HALLWAY USING FWW. HAS BEEN UP IN CHAIR MOST OF THE DAY AND TOLERATED WELL. STATED HE HAS USED TRAMADOL WHEN IN THE HOSPITAL IN THE PAST AND IT WORKED FOR HIS BACK PAIN WELL. URINE CONTINUES TO HAVE SEDIMENT.
[2023-06-23 20:02] VITALS: BP 135/73
[2023-06-24 02:39] VITALS: BP 110/69
--- NOTE | 2023-06-24 04:36 | NUR ---
SHIFT SUMMARY POWER WAS ALERT AND ORIENTED X 3-4 AT START OF SHIFT AND WAS SITTING UP IN CHAIR WHERE HE OPTED TO STAY INTIL 0230. PT NOTED TO BE RUNNING LOW TEMPS AROUND 95 DEGREES, LOOKING BACK AT HIS VITALS HISTORY SHOWS THAT HE HAS BEEN RUNNING 95-97 DEGREES FOR AT LEAST [address] CHOUDHURY WAS NOTIFIED AND SAW THE PT, NO ORDERS RECIEVED AT THIS TIME, PT BUNDLED UP IN WARM BLANKETS. 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 NO ACUTE EVENTS OR OTHER NOTED CHANGES TO CONDITION, PT RESTING IN BED AT A LOW POSITION WITH THE CALL LIGHT IN REACH.
[2023-06-24 05:16] LABS: BASOPHILS ABSOLUTE AUTO 0.01 K/mm3 (0.00-0.23); BASOPHILS PERCENT AUTO 0 % (0-2); EOSINOPHILS ABSOLUTE AUTO 0.12 K/mm3 (0.00-0.68); EOSINOPHILS PERCENT AUTO 4 % (0-6); Hematocrit 29.4 % (37.0-53.0); IMMATURE GRAN ABSOLUTE AUTO 0.01 K/mm3 (0.00-0.10); IMMATURE GRAN PERCENT AUTO 0 % (0-1); LYMPHOCYTES ABSOLUTE AUTO 1.01 K/mm3 (0.84-5.20); LYMPHOCYTES PERCENT AUTO 35 % (21-46); MONOCYTES ABSOLUTE AUTO 0.38 K/mm3 (0.16-1.47); MONOCYTES PERCENT AUTO 13 % (4-13); Mean Corpuscular HGB 34.4 pg (26.0-34.0); Mean Corpuscular Volume 101 fL (80-100); Mean Platelet Volume 10.4 fL (9.1-12.4); NEUTROPHILS ABSOLUTE AUTO 1.37 K/mm3 (1.96-9.15); NEUTROPHILS PERCENT AUTO 47 % (41-73); Platelet Count 143 K/mm3 (150-400); RDW Coefficient Variation 14.8 % (11.7-14.2); RDW Standard Deviation 55.8 fL (35.1-46.3); Red Blood Cell Count 2.91 M/mm3 (4.30-5.90)
[2023-06-24 05:39] LABS: Albumin, Blood 2.9 g/dL (3.4-5.0); Anion Gap 5 mmol/L (6-16); Blood Urea Nitrogen 23 mg/dL (8-24); Bun/Creatinine Ratio 19.2 (12.0-20.0); CO2, Blood 23 mmol/L (21-32); Calcium, Blood 9.1 mg/dL (8.5-10.1); Chloride, Blood 112 mmol/L (98-108); Glomerular Filtration Rate 63 (60-); Glucose, Blood 82 mg/dL (70-99); Phosphorus, Blood 4.1 mg/dL (2.5-4.9); Potassium, Blood 4.4 mmol/L (3.5-5.5); Sodium, Blood 140 mmol/L (136-145)
[2023-06-24 06:49] LABS: RENIN ACTIVITY <0.1 ng/mL/hr
[2023-06-24 08:09] VITALS: BP 138/78
[2023-06-24 15:21] VITALS: BP 141/74
--- NOTE | 2023-06-24 18:28 | NUR ---
DAYSHIFT SUMMARY Patient alert & oriented x4, pleasant and cooperative with cares. Tai catheter draining to gravity. Pt worked with therapy this shift. IV ABX administred. Vitals stable. Will continue plan of care.
[2023-06-24 21:22] VITALS: BP 135/81
--- NOTE | 2023-06-25 02:13 | NUR ---
DISCUSSED LOW TEMPERATURE READING WITH PT. PT STATES THAT HIS TEMP RUNS CHRONICALLY LOW AND THAT HE HAS BEEN DOWN TO 85.6 IN THE PAST WITHOUT ADVERSE EFFECTS. DISCUSSED WITH LENS ASSISTANT. PER REPORT, MOTEL CLERK RN CALLED HOSPITALIST REGARDING LOW TEMP AND NO NEW ORDERS WERE GIVEN.
[2023-06-25 04:54] VITALS: BP 146/76
--- NOTE | 2023-06-25 05:17 | NUR ---
SHIFT SUMMARY: POWER IS A&OX4. VSS, PT WITH LOW TEMP AT BASELINE. PT STATED THAT HE DOES NOT HAVE "GOOD PRACTICE" WHEN HE SELF-CATHS AT HOME. PT STATES THAT HE DOES NOT WEAR GLOVES OR CLEAN HIS MEATUS PRIOR TO STRAIGHT CATH INSERTION. DISCUSSED PROPER STRAIGHT CATH TECHNIQUES; PT VERBALIZED UNDERSTANDING AND STATES THAT HE WILL ADJUST HIS PRACTICE AT HOME. HE IS TOLERATING PO INTAKE WELL, TRAMMELL PATENT, AND IS CONTINENT OF BOWEL. HE IS LYING IN BED WITH THE CALL LIGHT IN REACH. HE IS A ONE-PERSON ASSIST WITH THE FWW TO THE BATHROOM. WILL GIVE REPORT TO DAY SHIFT RN.
[2023-06-25 05:30] LABS: BASOPHILS ABSOLUTE AUTO 0.02 K/mm3 (0.00-0.23); BASOPHILS PERCENT AUTO 1 % (0-2); EOSINOPHILS ABSOLUTE AUTO 0.11 K/mm3 (0.00-0.68); EOSINOPHILS PERCENT AUTO 4 % (0-6); Hematocrit 29.5 % (37.0-53.0); Hemoglobin 9.9 g/dL (13.5-17.5); IMMATURE GRAN ABSOLUTE AUTO 0.01 K/mm3 (0.00-0.10); IMMATURE GRAN PERCENT AUTO 0 % (0-1); LYMPHOCYTES ABSOLUTE AUTO 1.14 K/mm3 (0.84-5.20); LYMPHOCYTES PERCENT AUTO 40 % (21-46); MONOCYTES ABSOLUTE AUTO 0.43 K/mm3 (0.16-1.47); MONOCYTES PERCENT AUTO 15 % (4-13); Mean Corpuscular HGB 33.9 pg (26.0-34.0); Mean Corpuscular HGB Conc 33.6 g/dL (31.5-36.5); Mean Corpuscular Volume 101 fL (80-100); Mean Platelet Volume 10.3 fL (9.1-12.4); NEUTROPHILS ABSOLUTE AUTO 1.16 K/mm3 (1.96-9.15); NEUTROPHILS PERCENT AUTO 41 % (41-73); Platelet Count 156 K/mm3 (150-400); RDW Coefficient Variation 14.8 % (11.7-14.2); RDW Standard Deviation 55.1 fL (35.1-46.3); Red Blood Cell Count 2.92 M/mm3 (4.30-5.90); White Blood Cell Count 2.87 K/mm3 (4.00-11.30)
[2023-06-25 05:58] LABS: CORTISOL, FREE BY ED/LC-MS/MS 0.72 ug/dL
[2023-06-25 06:05] LABS: Magnesium, Blood 1.5 mg/dL (1.6-2.4)
[2023-06-25 06:06] LABS: Albumin, Blood 2.7 g/dL (3.4-5.0); Anion Gap 5 mmol/L (6-16); Blood Urea Nitrogen 22 mg/dL (8-24); Bun/Creatinine Ratio 19.6 (12.0-20.0); CO2, Blood 23 mmol/L (21-32); Calcium, Blood 8.8 mg/dL (8.5-10.1); Chloride, Blood 114 mmol/L (98-108); Creatinine, Blood 1.12 mg/dL (0.60-1.20); Glomerular Filtration Rate 68 (60-); Glucose, Blood 77 mg/dL (70-99); Phosphorus, Blood 3.8 mg/dL (2.5-4.9); Potassium, Blood 4.3 mmol/L (3.5-5.5); Sodium, Blood 142 mmol/L (136-145)
[2023-06-25 07:21] VITALS: BP 142/84
[2023-06-25] MEDS ORDERED: AMOCLA875 PO (09:26)
[2023-06-25] MEDS ORDERED: ASPI81CH PO (09:26)
[2023-06-25] MEDS ORDERED: MULVITA PO (09:27)
[2023-06-25] MEDS ORDERED: LEVSOD25 PO (09:27)
[2023-06-25] MEDS ORDERED: LINE600 PO (09:27)
[2023-06-25] MEDS ORDERED: VISBIOME 112.51 EACH PO (09:27)
== END 2023-06-25 11:30 | disposition home health service (06) | DRG 698 ==
LOC: ER 19:10 → MEDS 19:11
PROVIDERS: Emergency Medicine; Internal Medicine; Student in an Organized Health Care Education/Training Program; ADMIT Student in an Organized Health Care Education/Training Program
DX: T83.511A Infection and inflammatory reaction due to indwelling urethral catheter, initial encounter (principal); A41.81 Sepsis due to Enterococcus; A41.89 Other specified sepsis; G92.8 Other toxic encephalopathy; D61.818 Other pancytopenia; E27.40 Unspecified adrenocortical insufficiency; E87.0 Hyperosmolality and hypernatremia; G89.4 Chronic pain syndrome; E03.9 Hypothyroidism, unspecified; I87.2 Venous insufficiency (chronic) (peripheral); E87.6 Hypokalemia; E83.42 Hypomagnesemia; F10.20 Alcohol dependence, uncomplicated; M10.9 Gout, unspecified; I10 Essential (primary) hypertension; E66.01 Morbid (severe) obesity due to excess calories; R42 Dizziness and giddiness; N31.9 Neuromuscular dysfunction of bladder, unspecified; Z91.148 Patient's other noncompliance with medication regimen for other reason; Z68.27 Body mass index [BMI] 27.0-27.9, adult; Z11.52 Encounter for screening for COVID-19; Z28.21 Immunization not carried out because of patient refusal
CPT/HCPCS: 0241U; 36415; 51701; 51702; 51798; 70450; 70551; 71045; 80053; 80069; 81001; 82024; 82088; 82530; 82607; 82746; 83735; 84100; 84244; 84300; 84439; 84443; 84481; 85025; 87040; 87077; 87086; 87186; 92610; 93005; 93010; 94762; 96372; 96374; 96375; 97116; 97161; 97530; 99285-25; A9270; G0378; J1650; J1720; J3370; J3475; J7050